=== PATIENT | male | born 1960 | race Caucasian/White ===

== ENCOUNTER 2019-01-06 10:25 | Outpatient (RCR) | payer OTHER, SELFPAY ==
[2018-12-10 17:18] VITALS: BMI 38.1
--- NOTE | 2019-04-05 11:38 | HP.PTEVAL ---
Patient's Visit Information LINSEY BARRIOS is a 59 year old M referred to Physical Therapy by SHY Rosario with a diagnosis of L ITB Syndrome. Date of Evaluation: 01/06/19 Physical Therapist: Deepa Esparza DPT - Visit Plan Frequency: 1x/Week Duration: 1 Week Plan: 01/06/19 Pt. prescribed HEP & instructed to perform on own & return if any questions/concerned. HEP: SL Clams (BTB), S[place] Bridge, SL Hip abd., gastrioc stretch, seated hamstring stretch - Subjective Findings: Reports feeling a muscle tear in L lower back 2nd week of november. Difficulty getting out of the car, went to [facility] and walked frequently. No issues at this time, bending down to put on shoes was uncomfortable. Got worse on return home, went to [facility] d/t to increase in pain 10/27. Given prescription for steroids & muscle relaxers - eased LBP. Burning pain (11/27) began 12/14/18 in L knee to L hip. Unable to walk to 25-30 feet. [facility] stated ITB syndrome. HEating pad at home has helped ease some of the pain. Pain is at ease when leaning on something for support. When stabnding erect pain at L leg. Pain has reduced in severity. Has been feeling numbness in L knee cap. Gideon hx of falling. Worst: 3-4/10 Aggravating: Walking, transferring out of car, mowing the lawn. Pain free at times Relieving factors: heating pad, pain meds, pain subsides after sitting almost immediately. Gideon disruption of sleep. Gideon any further N/T or current LBP. 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 PMH/Meds: See Chart - Objective Posture: FH, RS - corrected w/ v/c but not maintained. Gait: no deviations noted, pain with walking long distances. HR/TR: WFL w/ UE support. SLS: 5 seconds then LOB, righted by other LE. ROM: ankle/knee/hip WFL Lumbar: Flexion hands to mistry, Extension when tested extension came from thoracic, Side-bending & rotation R/L diminshed by 50%. Strength: ankle 5/5 knee 5/5 Hip 4/5 some mild pain Core: fair minus. Flexibility: Gastroc: severe Soleus: mild Hamstring: severe. Sensation: WNL to gross B touch. Special Tests: Jung (-) - Goals Goal 1:: Pt. will be I w/ HEP & progression - Rehabilitation Potential Physical Therapy Diagnosis: Presents w/ hypomobility, decreased flexibility, and pain which leads to difficulty w/ ADL's. Rehabilitation Potential: Good - Anticipated Interventions Patient/Client Instruction: Educate patient on: Condition, Benefits of Fitness Program For the Purpose of:: To decrease pain Therapeutic Exercise to Include: Strength training, Flexibilty training Thank you for the opportunity to evaluate your patient. For Medicare and Medicare HMO plans, please review the plan of care and approve it. It will need to be FAXED BACK to us at [phone] for Medicare purposes. For Medicare only, by signing this I certify the plan of care. Please let me know if there are questions or concerns regarding this plan of care. Physician Signature: Date:
--- NOTE | 2019-04-14 10:44 | HP.PT.NRP ---
HP - Discharge Summary (1) - Patient Information LINSEY BARRIOS was seen in my office for initial evaluation on 01/06/19. The following Plan of Care was established for this patient: Initial Frequency: 1x/Week Initial Duration: 1 Week - Anticipated Interventions Patient/Client Instruction: Educate patient on: Condition, Benefits of Fitness Program For the Purpose of:: To decrease pain Therapeutic Exercise to Include: Strength training, Flexibilty training This patient was last seen in our office . Pertinent comments regarding their Physical therapy will appear below: At this point I will be discontinuing this patient from physical therapy. I would be happy to see this patient again in the future if found appropriate by the physician. Thank you! LUPILLO DangeloT
== END 2019-01-06 19:00 | disposition home or self-care (01) ==
LOC: PT 10:25
PROVIDERS: Referring Provider Physician Assistant; Visit Provider Physician Assistant
DX: M76.32 Iliotibial band syndrome, left leg (principal)
CPT/HCPCS: 97110; 97161

== ENCOUNTER 2020-07-20 06:31 | Day surgery (SDC) | payer OTHER, SELFPAY ==
[2020-04-23 10:19] VITALS: BMI 37.8
--- NOTE | 2020-07-17 11:42 | NURSING ---
PATIENT HAD PFIZER VACCINE X2 DOSE 06/20/20
[2020-07-20 06:49] VITALS: BP 136/84; PULSE 74; RESP 16; TEMP 35.8; O2SAT 98; BMI 36.2
[2020-07-20] MEDS: Lactated Ringers 1,000 ML 100 ML IV (07:04)
--- NOTE | 2020-07-20 07:38 | H&P.OPEN ---
History of Present Illness Date of Admission: 07/20/20 The patient is a 60 year old M here for screening colonoscopy. He has never had a screening colonoscopy. He reports no blood in his stool or abdominal pain. He denies any family history of colon cancer. Past Medical/Surgical History - Planned Operation Planned Operative Procedure/s: CSCOPE OPEN ACCESS Date of Operative Procedure: 07/20/20 Permit Signed: No S.O.S: No Is This Patient Having a Total Joint: No - Previous Hospitalizations/Surgeries HX Hospitalizations: No HX of Surgeries: HERNIA REPAIR. APPENDECTOMY Any Problems With Anesthesia: Yes - N,V You/Your Family Experience Fever (Hyperthermia) With Anes: No Cholinesterase deficiency: No - Cardiovascular Hx Chest Pain within Last 2 months: No Hx of Irregular Heartbeat and/or Afib: No Hx Heart Attack: No Hx Congestive Heart Failure: No Hx Rheumatic Fever: No Hx Hypertension: No Hx Internal Defibrillator: No Hx Pacemaker: No Hx Cardiac Catheterization: No Hx Cardiac Surgery/Stents/Etc.: No Hx Stress Test: No HX Edema: No Hx Pain in Legs when Walking/Leg Cramps: No - Respiratory Chronic Cough: No HX of Shortness of Breath: No Hoarseness: No Hx Chronic Obstructive Pulmonary Disease (COPD): No Hx Asthma: No Hx Emphysema: No Hx Sleep Apnea: No Hx Oxygen Use at Home: No Hx Respiratory Tract Infection/Cold (presently): No Do You Snore Loudly (louder than talking or can be heard): Yes Do You Often Feel Tired/ Fatigued/ Sleepy Dring Daytime?: No Has Anyone Observed You Stop Breathing During Sleep?: No Result (for STOP score): Negative Hx Smoking: Yes - CHEWING TOBACCO Smoking Status: Current every day smoker - Gastrointestinal Hx Gastroesophageal Reflux: No - OCC HEARTBURN/OCC OTC Hx Gastrointestinal Disorders: No Hx Gastrointestinal Bleed: No Hx Ulcer: No Hx Hiatal Hernia: No Difficulty Chewing/Swallowing: No Recent Onset of Swallowing Problems: No Special diet followed at home: No Hx Unplanned Weight Loss of 20#: No HX Unplanned Weight Gain of 20#: No - Neurological Hx Seizures: No HX Syncope/Blackout Spells/Unconsciousness: No Hx CVA/Stroke: No Hx Transient Ischemic Attacks (TIA): No Hx Multiple Sclerosis: No Hx Parkinson's Disease: No Hx Head/Neck Injury: No Hx Headaches: Yes - OCC Hx Back Injury/Pain: Yes - PRN BACK PAIN/IT BAND ISSUES IN THE PAST Recent Onset of Speech Difficulty: No Restless Legs: No Does patient have nerve stimulator: No Patient instructed to have device shut off: No Rep notified?: No - Blood Disorder Hx Leukemia: No Bleeding Tendencies: No Hx Deep Vein Thrombosis: No Hx High Cholesterol: No Blood Transmitted Disease: No Hx Hepatitis: No Hx Cirrhosis: No Hx Anemia: No Hx Blood Disorders: No - Genitourinary Hx Renal Disease: No - Musculoskeletal Hx Arthritis: No Hx Rheumatoid Arthritis: No Hx Gout: No Recent Onset of an Orthopedic Problem: No - Endocrine Hx Diabetes: No Thyroid Disease: No Hx Steroid Therapy: No - Psycho/Social Hx Substance Use: No Hx Alcohol Use: Yes - OCC Hx Anxiety: Yes - SITUATIONAL Hx Depression: No Mental Illness: No Hx Dementia: No - Miscellaneous Hx Cancer: No Recent Exposure to Contagious Disease: No Active MRSA: No Hx of C-Diff: No Any Loose Teeth: No Allergies hydrocodone [From Vicodin] Adverse Reaction (Mild, Verified 07/17/20 11:33) Dry heaves - Discharge Is Pt Admitted From a Residential, or a Assisted: No After D/C, Where Do you Plan to Go: Return Home - Physical Exam Vitals/I&O's: Vital Signs Temp Pulse Resp BP Pulse Ox 96.4 F L 74 16 136/84 H 98 07/20/20 06:49 07/20/20 06:49 07/20/20 06:49 07/20/20 06:49 07/20/20 06:49 Oxygen Delivery Method Room Air Weight: 252 lb 6.868 oz Body Mass Index (BMI) 36.2 General: Alert, Oriented x3 Neck: No JVD Lungs: Normal air movement Cardiovascular: Regular rate, Regular Rhythm Abdomen: Soft, Non Tender, Non-Distended Current Medications Lactated Ringer's () 1,000 mls @ 100 mls/hr IV .Q10H DALE Last Admin: 07/20/20 07:04 Dose: 100 mls/hr Documented by: Assessment/Plan All Active Problems (Last Reviewed 04/23/20 @ 10:24 by Vinita Franks) IT band syndrome (Acute) 60-year-old male here for screening colonoscopy I explained endoscopy in detail to the patient. I explained the risks including but not limited to stroke or heart attack with anesthesia, perforation of the GI tract, bleeding, infection. I explained that any of these could necessitate further emergency surgery. The patient understands and all questions were answered sufficiently. The patient wishes to proceed with procedure. Elvin Prajapati MD Pager: [facility] [address] [place] [address] [address] [place] [address] Office: Surgery Risks - Colonoscopy Risks Include but are not Limited To: Risks include but are not limited to: Bleeding, perforation requiring further surgery, inability to complete colonoscopy requiring barium enema.
[2020-07-20 07:56] VITALS: BP 113/81; BP 136/84; PULSE 78; RESP 16; TEMP 35.9; O2SAT 95
--- NOTE | 2020-07-20 07:56 | OP.COLON_ITS ---
Patient Name: Harry Eduardo Procedure Date: 07/20/2020 7:00 AM Date of : 1960 Age: 60 Procedure: Colonoscopy Indications: Screening for colorectal malignant neoplasm Providers: Elvin Prajapati MD Referring MD: Christie Hooper Medicines: Monitored Anesthesia Care Patient Profile: This is a 60 year old male. Refer to note in patient chart for documentation of history and physical. Last Colonoscopy: none. The patient's first colonoscopy is today. Complications: No immediate complications. Procedure: Pre-Anesthesia Assessment: - Prior to the procedure, a History and Physical was performed, and patient medications and allergies were reviewed. The patient's tolerance of previous anesthesia was also reviewed. The risks and benefits of the procedure and the sedation options and risks were discussed with the patient. All questions were answered, and informed consent was obtained. Prior Anticoagulants: The patient has taken no previous anticoagulant or antiplatelet agents. After reviewing the risks and benefits, the patient was deemed in satisfactory condition to undergo the procedure. After I obtained informed consent, the scope was passed under direct vision. Throughout the procedure, the patient's blood pressure, pulse, and oxygen saturations were monitored continuously. The Colonoscope was introduced through the anus and advanced to the cecum, identified by appendiceal orifice and ileocecal valve. The colonoscopy was performed without difficulty. The patient tolerated the procedure well. The quality of the bowel preparation was good. Scope In: 7:42:28 AM Scope Withdrawal Time 0 hours 6 minutes 0 seconds Scope Out: 7:52:27 AM Total Procedure Duration Time 0 hours 9 minutes 59 seconds Findings: The entire examined colon appeared normal on direct and retroflexion views. Impression: - The entire examined colon is normal on direct and retroflexion views. - No specimens collected. Recommendation: - Discharge patient to home. - Resume previous diet. - Continue present medications. - Repeat colonoscopy in 10 years for screening purposes. Procedure Code(s): --- Professional --- 17538, Colonoscopy, flexible; diagnostic, including collection of specimen(s) by brushing or washing, when performed (separate procedure) Diagnosis Code(s): --- Professional --- Z12.11, Encounter for screening for malignant neoplasm of colon CPT copyright 2017 [employer]. All rights reserved. The codes documented in this report are preliminary and upon oral pathologist review may be revised to meet current compliance requirements. Elvin Prajapati MD 07/20/2020 7:55:33 AM This report has been signed electronically. Number of Addenda: 0 Note Initiated On: 07/20/2020 7:00 AM
--- NOTE | 2020-07-20 07:56 | OP.CCLET_ITS ---
07/20/2020 Christie Hooper [facility] [address] [place] [address] Re : Colonoscopy procedure for Harry Peraltalisandro Dear Dr. Hooper This procedure was performed on Monday, July 20, 2020. My impressions and recommendations are as follows: Impressions : - The entire examined colon is normal on direct and retroflexion views. - No specimens collected. Recommendations : - Discharge patient to home. - Resume previous diet. - Continue present medications. - Repeat colonoscopy in 10 years for screening purposes. My findings are described in the full procedure note, which is enclosed. If I can be of further assistance, please feel free to contact me at Doctor phone number(s): , Work: . Sincerely, Elvin Prajapati MD 07/20/2020 7:55:33 AM This report has been signed electronically.
[2020-07-20 08:00] VITALS: BP 105/93; BP 136/84; PULSE 72; RESP 18; O2SAT 93
[2020-07-20 08:05] VITALS: BP 129/83; BP 136/84; PULSE 72; RESP 18; O2SAT 92
[2020-07-20 08:11] VITALS: BP 129/83; BP 136/84; PULSE 67; RESP 18; TEMP 36.3; O2SAT 97
[2020-07-20 08:34] VITALS: BP 136/84
== END 2020-07-20 08:37 | disposition home or self-care (01) ==
LOC: EN 06:32 → AC 06:34
PROVIDERS: PCP Internal Medicine; Referring Provider Internal Medicine; Visit Provider Surgery
PROC: 0DJD8ZZ Inspection of Lower Intestinal Tract, Via Natural or Artificial Opening Endoscopic (ICD-10-PCS; CPT 45378; principal; 2020-07-20 07:25)
DX: Z12.11 Encounter for screening for malignant neoplasm of colon (principal); F17.200 Nicotine dependence, unspecified, uncomplicated
CPT/HCPCS: 45378; J7120; J2405

== ENCOUNTER → 2021-03-26 15:41 | Outpatient (CLI) | payer OTHER, SELFPAY ==
[2021-03-26 17:06] LABS: Absolute Lymphocyte Count 1.58 X10^3/uL (0.83-4.51); Absolute Neutrophil Count 3.6 X10^3/uL (2.0-7.7); Basophil# 0.03 X10^3/uL; Basophil% 0.5 % (0-1); Eosinophil# 0.11 X10^3/uL; Eosinophils% 1.9 % (0-5); Hematocrit 44.7 % (40-54); Hemoglobin 15.6 g/dL (13.0-16.5); Lymphocyte # 1.58 X10^3/ul (0.83-4.51); Lymphocyte % 26.8 % (19-41); Mean Corp Hgb Conc 34.9 g/dL (32-36); Mean Corpuscular Volume 91.8 fL (80-94); Mean Platelet Vol. 10.6 fl (6.2-12.0); Monocyte# 0.56 X10^3/uL; Monocyte% 9.5 % (0-10); NRBC Flagged by Analyzer 0 % (0-5); Neutrophil # 3.61 X10^3/uL (2.7-7.7); Neutrophil % 61.1 % (47-70); Platelet Count 158 K/mm3 (150-450); RBC Distribution Width CV 12.4 % (11.6-14.6); RBC Distribution Width SD 42.1 fl (35.1-43.9); Red Blood Count 4.87 M/mm3 (4.6-6.2); White Blood Count 5.9 K/mm3 (4.4-11.0)
[2021-03-26 17:54] LABS: Hemoglobin A1c 5.4 % (3.8-5.6)
[2021-03-26 18:12] LABS: AST(SGOT) 23 U/L (15-37); Alanine Aminotransfer ALT/SGPT 25 U/L (16-61); Albumin, Serum 4.2 g/dL (3.2-5.0); Alkaline Phosphatase 98 U/L (45-117); Anion Gap 9 (5-15); BUN 13 mg/dL (7-18); BUN/Creat Ratio 11.8 RATIO (10-20); Calcium,Total 9.1 mg/dL (8.5-10.1); Chloride 100 mmol/L (98-107); Cholesterol 150 mg/dL (200); EST Glomerular Filtration Rate 72 mL/min (>60); Est Glom Filt Rate - Afr Amer 88 mL/min (>60); Globulin 4.3 g/dL (2.2-4.2); Glucose 86 mg/dL (74-106); High Density Lipoprotein 40 mg/dL; PSA,Total - Annual Screen 0.36 ng/mL (0.00-4.00); Potassium 3.6 mmol/L (3.5-5.1); Protein, Total 8.5 g/dL (6.4-8.2); Sodium Level 136 mmol/L (136-145); Triglycerides 68 mg/dL; Very Low Density Lipoprotein 14 mg/dL (5-40)
[2021-03-27 10:56] LABS: Free T3 2.3 pg/mL (2.18-3.98); T4 Free Direct 0.94 ng/dL (0.76-1.46)
== END ==
PROVIDERS: PCP Internal Medicine; Referring Provider Internal Medicine; Visit Provider Internal Medicine
DX: E66.3 Overweight (principal); R94.6 Abnormal results of thyroid function studies; Z13.1 Encounter for screening for diabetes mellitus; Z13.220 Encounter for screening for lipoid disorders
CPT/HCPCS: 36415; 80053; 80061; 83036; 84153; 84439; 84443; 84481; 85025; G0103

== ENCOUNTER → 2021-04-03 15:01 | Outpatient (CLI) | payer OTHER, SELFPAY ==
[2021-04-05 14:09] LABS: Thyroid Peroxidase AB 95 IU/mL (0-34)
[2021-04-05 14:13] LABS: Thyroglobulin Antibody 2.9 IU/mL (0.0-0.9)
== END ==
PROVIDERS: PCP Internal Medicine; Visit Provider Internal Medicine
DX: R79.89 Other specified abnormal findings of blood chemistry (principal)
CPT/HCPCS: 36415; 86376; 86800

== ENCOUNTER 2021-07-22 16:11 | Outpatient (CLI) | payer OTHER, SELFPAY ==
[2021-07-22 17:39] LABS: Free T3 2.6 pg/mL (2.18-3.98); T4 Free Direct 0.73 ng/dL (0.76-1.46)
== END 2021-07-22 23:59 | disposition home or self-care (01) ==
LOC: BIMLAB 16:12
PROVIDERS: PCP Internal Medicine; Referring Provider Internal Medicine; Visit Provider Internal Medicine
DX: R79.89 Other specified abnormal findings of blood chemistry (principal)
CPT/HCPCS: 36415; 84439; 84443; 84481

== ENCOUNTER → 2021-10-18 | Outpatient (CLI) | payer OTHER, SELFPAY ==
[2021-10-18 15:46] LABS: Hematocrit 42.7 % (40-54); Hemoglobin 14.8 g/dL (13.0-16.5); Mean Corp Hgb Conc 34.7 g/dL (32-36); Mean Corpuscular Hgb 32.1 pg (27.0-32.0); Mean Corpuscular Volume 92.6 fL (80-94); Mean Platelet Vol. 11.8 fl (6.2-12.0); Platelet Count 143 K/mm3 (150-450); RBC Distribution Width CV 12.7 % (11.6-14.6); RBC Distribution Width SD 43.4 fl (35.1-43.9); Red Blood Count 4.61 M/mm3 (4.6-6.2); White Blood Count 5.9 K/mm3 (4.4-11.0)
[2021-10-18 15:55] LABS: ALB/GLOB Ratio 1.1 RATIO (0.9-2.4); AST(SGOT) 24 U/L (15-37); Alanine Aminotransfer ALT/SGPT 19 U/L (16-61); Albumin, Serum 4.2 g/dL (3.2-5.0); Alkaline Phosphatase 98 U/L (45-117); Anion Gap 8 (5-15); BUN 14 mg/dL (7-18); BUN/Creat Ratio 12.6 RATIO (10-20); Calcium,Total 9.6 mg/dL (8.5-10.1); Chloride 106 mmol/L (98-107); Creatinine, Serum 1.11 mg/dL (0.70-1.30); EST Glomerular Filtration Rate 71 mL/min (>60); Est Glom Filt Rate - Afr Amer 86 mL/min (>60); Ferritin 144 ng/mL (26-388); Globulin 3.9 g/dL (2.2-4.2); Glucose 95 mg/dL (74-106); Iron 109 ug/dL (65-175); Iron Binding Capacity,Total 313 ug/dL (250-450); Potassium 3.8 mmol/L (3.5-5.1); Protein, Total 8.1 g/dL (6.4-8.2); Sodium Level 137 mmol/L (136-145)
[2021-10-18 16:00] LABS: Free T3 2.7 pg/mL (2.18-3.98); T4 Free Direct 1.01 ng/dL (0.76-1.46); Thyroid Stim Hormone (TSH) 3.95 uIU/mL (0.358-3.74)
[2021-10-21 08:09] LABS: PTHIN 35.4 pg/mL (18.4-80.1)
[2021-10-24 00:07] LABS: Ceruloplasmin 21.8 mg/dL (16.0-31.0)
[2021-10-24 08:43] LABS: Copper, Serum or Plasma 92 ug/dL (69-132)
== END | disposition home or self-care (01) ==
LOC: MTLAB 13:09
PROVIDERS: PCP Internal Medicine; Referring Provider Psychiatry & Neurology Neurology; Visit Provider Psychiatry & Neurology Neurology
DX: G24.3 Spasmodic torticollis (principal); E03.9 Hypothyroidism, unspecified; Z86.2 Personal history of diseases of the blood and blood-forming organs and certain disorders involving the immune mechanism
CPT/HCPCS: 36415; 80053; 82390; 82525; 82728; 83540; 83550; 83970; 84439; 84443; 84481; 85027

== ENCOUNTER → 2022-02-17 | Outpatient (CLI) | payer OTHER, SELFPAY ==
[2022-02-17 15:39] LABS: Free T3 2.5 pg/mL (2.18-3.98); Thyroid Stim Hormone (TSH) 4.55 uIU/mL (0.358-3.74)
[2022-02-22 17:07] LABS: Testosterone, Free 9.31 ng/dL (5.00-21.00)
[2022-02-23 11:33] LABS: Testosterone, % Free 2.05 % (1.50-4.20); Testosterone, Total 454 ng/dL (264-916)
== END | disposition home or self-care (01) ==
PROVIDERS: PCP Internal Medicine; Referring Provider Psychiatry & Neurology Neurology; Visit Provider Psychiatry & Neurology Neurology
DX: E03.9 Hypothyroidism, unspecified (principal)
CPT/HCPCS: 36415; 84402; 84403; 84439; 84443; 84481

== ENCOUNTER 2022-06-27 10:19 | Outpatient (RCR) | payer OTHER, SELFPAY ==
--- NOTE | 2022-07-09 10:42 | HP.PTEVAL_ITS ---
Patient's Visit Information LINSEY BARRIOS is a 62 year old M referred to Physical Therapy by Earl Ball MD with a diagnosis of Cervical dystonia. Date of Evaluation: 06/27/22 Physical Therapist: Jose Landis DPT - Visit Plan Duration: 6 Weeks Plan: Start with stretching and inhibition exercises and strengthening of antagonist. - Subjective Pt. is here today for his initial evaluation with diagnosis of cervical dystonia. Pt. reports having issues for ~2 years. He reports that his head will randomly turn to the R side. Pt. reports no mech of injury, but has been noticing it more and more. Pt. denies much neck pain, ~0-1/10 at most times. He reports that it is more annoying than anything else. Pt. reports that his neck with turn to the R side randomly, with no trigger. He reports using pressure to assist with correcting his R sided motion. Pt. sleep okay, but does notice it while at work. 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 Pt. reports not trying any other form of treatment of his neck. Pt. is hopeful to reduce symptoms in order to get back to all work and recreational activities without limitations. - Pain R side of neck Pain Intensity (Out of 10): 1 Pain Intensity Range: 0, 2 - Objective POSTURE: Pt. has a slight R lateral lean and slight R rotation slight flexion. He is able to self correct, but does revert back when not focusing on. Pt. has FH posture with increased thoracic kyphosis. Pt. is able to improve, but not fully correct. PALPATION: Pt. has tightness at R UT and R SCM. NO pain with PAs throughout cervical spine. NEURO: Pt. has normal sensation and normal DTR of BUEs. ROM: CERVICAL SPINE: flexion nil loss NE, ext mod loss increase NW, SB mod loss bilat NE, rotation min loss L NE (tightness). Pt. has slight loss of B shoulder flexion, most likely due to increase kyphosis. MMT: PT. has full strength of BUEs. Pt. has 5/5 strength iso throughout cervical spine - Special Tests C/S Radiculapathy - Left Upper limb tension test: Negative C/S Radiculapathy - Right Upper limb tension test: Negative C/S Radiculapathy - Left Spurlings: Negative C/S Radiculapathy - Right Spurlings: Negative C/S Radiculapathy - Left Cervical distraction: Negative C/S Radiculapathy - Right Cervical distraction: Negative C/S Radiculapathy - Left Relief test: Negative C/S Radiculapathy - Right Relief test: Negative C/S Radiculapathy - Valsalva: Negative - Balance/Special Test Scores Oswestry Neck Score: 10 - Goals Goal 1:: LTG: Pt. to be I with HEP. Goal Time Frame: 4-6 Weeks Goal 2:: LTG: Pt. to maintain good posture throughout therapy session without increase in symptoms. Goal Time Frame: 4-6 Weeks Goal 3:: LTG: pt. to have no issues with cervical rotation during all ADLs and work activities. Goal Time Frame: 4-6 Weeks Goal 4:: STG: pt. to report spasming in his neck to less than 5 times per day. Goal Time Frame: 2-4 Weeks - Rehabilitation Potential Physical Therapy Diagnosis: Pt. has signs and symptoms consistent with cervical dystonia with pull to the right side. Pt. is able to correct, but difficult to maintain. Pt. would benefit from PT to reduce tone of neck. Pt. would benefit from inhibition, stretching and motor control techniques. Rehabilitation Potential: Good - Anticipated Interventions Patient/Client Instruction: Educate patient on: Condition, Plan of Care, Risk Factors, Benefits of Fitness Program For the Purpose of:: To foster healthy habits, To improve decision making, To facilitate caregiver knowledge, To improve self management, To prevent re- injury, To improve ability to perform tasks related to life management Therapeutic Exercise to Include: Strength training, Power training, Postural training, Flexibilty training, Passive ROM, Active ROM For the Purpose of:: To decrease pain, To increase ROM, To improve nutrient delivery to tissue, To increase oxygenation perfusion, To improve muscle performance and motor function, To improve ability to perform ADL's, To increase flexibility/ROM Manual Therapy Techniques to Include: Mobilization For the Purpose of:: To decrease pain, To decrease swelling/inflammation, To increase ROM, To improve nutrient delivery to tissue Thank you for the opportunity to evaluate your patient. For Medicare and Medicare HMO plans, please review the plan of care and approve it. It will need to be FAXED BACK to us at [phone] for Medicare purposes. For Medicare only, by signing this I certify the plan of care. Please let me know if there are questions or concerns regarding this plan of care. Physician Signature: Date:
== END 2022-06-27 19:00 | disposition home or self-care (01) ==
LOC: PT 10:19
PROVIDERS: PCP Internal Medicine; Referring Provider Psychiatry & Neurology Neurology; Visit Provider Psychiatry & Neurology Neurology
DX: G24.3 Spasmodic torticollis (principal)
CPT/HCPCS: 97161

== ENCOUNTER → 2022-07-08 | Outpatient (CLI) | payer OTHER, SELFPAY ==
[2022-07-08 15:28] LABS: Amphetamine Urine VISTA NEGATIVE (<1000 ng/mL); Barbiturate Urine VISTA NEGATIVE (< 200 ng/mL); Benzodiazepine Urine VISTA NEGATIVE (< 200 ng/mL); Cocaine Urine VISTA NEGATIVE (< 300 ng/mL); Ecstacy Urine VISTA NEGATIVE (< 500 ng/mL); Methadone Urine VISTA NEGATIVE (< 300 ng/mL); PCP Urine VISTA NEGATIVE (< 25 ng/mL); THC Urine VISTA NEGATIVE (< 50 ng/mL); Vista UDS pH Range 4
[2022-07-08 15:39] LABS: T4 Free Direct 0.99 ng/dL (0.76-1.46); Thyroid Stim Hormone (TSH) 2.97 uIU/mL (0.358-3.74)
== END | disposition home or self-care (01) ==
LOC: MTLAB 12:45
PROVIDERS: PCP Internal Medicine; Referring Provider Psychiatry & Neurology Neurology; Visit Provider Psychiatry & Neurology Neurology
DX: E03.9 Hypothyroidism, unspecified (principal); G24.3 Spasmodic torticollis
CPT/HCPCS: 36415; 80307; 84439; 84443

== ENCOUNTER → 2023-04-09 | Outpatient (CLI) | payer OTHER, SELFPAY ==
--- NOTE | 2023-04-09 11:12 | NEURO ---
NCS and/or EMG Patient Report Ordering Doctor: Earl Ball DATE OF SERVICE: 04/09/23 Clinical Summary: This is a 63 year old male presenting with complaints of burning pain in the left upper extremity and some numbness in the left hand. This EMG/NCS was performed to evaluate for left cervical radiculopathy and left carpal tunnel syndrome. Nerve Conduction Studies Summary: The left median-D2 SNAP distal latency was prolonged with reduced amplitude. The left median-APB CMAP distal latency was prolonged. There was left median motor conduction velocity across the forearm segment. The left ulnar-D5 SNAP distal latency was prolonged. There was left ulnar motor conduction velocity slowing across the elbow. Needle Examination Summary: Needle examination of select muscles of the left upper extremity was normal. Impression: There is electrodiagnostic evidence of the following - 1) Moderate to severe, left median mononeuropathy at the wrist (carpal tunnel syndrome), with motor fiber demyelination and secondary sensory fiber axonal loss 2) Moderate to severe, left ulnar mononeuropathy at the elbow, with secondary sensory fiber axonal loss There is no electrodiagnostic evidence of a left cervical radiculopathy. Multi Select Codes Neurology Neurology Interp Codes: 14586-90 Musc test done w/n test comp (interp) (1) and 85204-94 Nrv cndj tst 5-6 studies (interp)
== END | disposition home or self-care (01) ==
LOC: PSN 10:20
PROVIDERS: PCP Internal Medicine; Referring Provider Psychiatry & Neurology Neurology; Visit Provider Psychiatry & Neurology Neurology
DX: G56.02 Carpal tunnel syndrome, left upper limb (principal); G24.3 Spasmodic torticollis
CPT/HCPCS: 95886; 95909

== ENCOUNTER → 2023-07-17 | Outpatient (CLI) | payer OTHER, SELFPAY ==
--- NOTE | 2023-07-17 15:24 | RAD_ITS ---
STUDY: XR Shoulder Min 2 Views REASON FOR EXAM: Male, 63 years old. left shoulder pain TECHNIQUE: XR Shoulder 5Views LEFT COMPARISON: None. FINDINGS: There is mild degenerative arthrosis of the glenohumeral articulation. Normal acromioclavicular joint. Normal acromion. Normal humeral head and visualized proximal humerus. The soft tissue structures are unremarkable. Normal visualized pulmonary apex. RAD/Shoulder min 2 Views IMPRESSION: There is mild degenerative arthrosis of the glenohumeral articulation. Electronically Signed: Benoit Conner MD at 15:51 EDT ,
== END | disposition home or self-care (01) ==
LOC: MTRAD 15:24
PROVIDERS: PCP Internal Medicine; Referring Provider Psychiatry & Neurology Neurology; Visit Provider Psychiatry & Neurology Neurology
DX: M25.512 Pain in left shoulder (principal)
CPT/HCPCS: 73030

== ENCOUNTER → 2025-04-18 | Outpatient (CLI) | payer OTHER, SELFPAY ==
--- NOTE | 2025-04-18 10:47 | RAD_ITS ---
PROCEDURE: SHOULDER MIN 2 VIEWS 04/18/2025 REASON FOR EXAM: Pain, decreased range of motion TECHNIQUE: Procedure Code: RAD Modality: DX Procedure: SHOULDER MIN 2 VIEWS COMPARISON: None FINDINGS: The bones are diffusely demineralized. No demonstrated fracture or suspicious osseous lesion Moderate age consistent glenohumeral and AC joint arthrosis without traumatic injury. No upper rib fracture or pneumothorax. RAD/Shoulder min 2 Views IMPRESSION: Diffuse osteopenia with age consistent degenerative changes, no acute findings Reading Location: [id number]
--- OUTSIDE RECORDS SUMMARY | 2025-04-18 11:56 | XMS RPT_ITS | CCD ---
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 J0585 Total amount injected: 270 units Dilution: NS 1:1 Administered with EMG guidance: Yes Degree of effectiveness of last injection: 0 ( notes seemed better but patient denies any functional benefit) Latency period of last injection: n/a Wearing off period of last injection: n/a Side effects related to last injection: none Current pain symptoms: Yes (location) - up to 3/10 pain Current functional limitations: 3-4(severe) Allergies: ALLERGIES Allergen Reactions Hydrocodone Other: See Comments Flushed feeling, dry heaves Current Medications: Current Outpatient Medications Medication Sig aspirin 325 mg tablet Take 325 mg by mouth. As needed only ibuprofen (MOTRIN) 200 mg tablet Take 200 mg by mouth every 6 hours as needed. triHEXYphenidyl (ARTANE) 5 mg tablet Take 1 tablet by mouth three times daily. levothyroxine (SYNTHROID) 50 mcg tablet Take 1 tablet by mouth every afternoon. onabotulinum toxin type A (BOTOX) 100 unit solr Inject 200 units IM in office by neurologist for cervical dystonia. Flurbiprofen 100 mg tablet Take 100 mg by mouth three times daily as needed. clonazePAM (KLONOPIN) 0.5 mg tablet Take 1 tablet by mouth every 12 hours at 6 am and 6 pm. No current facility-administered medications for this visit. OBJECTIVE: BP 122/73 (BP Site: Right Arm, BP Position: Sitting, BP Cuff Size: Regular Adult) Pulse (!) 55 Ht 177.8 cm (5' 10) Wt 81.5 kg (179 lb 12.6 oz) BMI 25.80 kg/m? Special features on today's visit: Not as prominent in prior visits. Occasional right head turn. ASSESSMENT AND PLAN: Mr. Barrios is a left-handed 63 year old male with Cervical dystonia (G24.3). After obtaining informed consent, neurotoxin injections were carried out as outlined below. TIME OUT/ PROCEDURE NOTE: Informed consent Linsey Barrios Medical Record: [id number] Procedure: neurotoxin intramuscular injection The risks, benefits and anticipated outcomes of the procedure, the risks and benefits of the alternatives to the procedure and the roles and tasks of the personnel to be involved were discussed with the patient and the patient consents to the procedure and agrees to proceed. I verify that I personally obtained Linsey Barrios's consent. Jessica Rivas MD UNIVERSAL PROTOCOL / SAFETY CHECKLIST Procedure to be Performed: Botox injection for cervical dystonia Sign In: A Moment of CARE was completed. Personnel directly involved with the procedure wore the appropriate PPE (Personal Protective Equipment). Patient/Surrogate Stated/Verified: PATIENT VERIFIED(optional for EMERGENT procedures): Patient name, Date of , Relevant allergies, and The intended procedure Time Out Communication: Intended patient and procedure match the source documents. Consent documented and matches the intended procedure. Sign Out: SIGN OUT (optional for EMERGENT procedures): No specimen collected. Jessica Rivas MD Current Injection Note Type of neurotoxin: Botox: J0585 Total amount drawn: 300 units Total amount injected: 300 units Total amount wasted: 0 units Dilution: NS 1:1 Administered with EMG guidance: Yes Injection Site: Cervical dystonia: CPT 42836 Left Right Sternocleidomastoid 55 units Splenius capitus 80 units (3 sites) Scalene 20 units 25 units Levator Scapulae 50 units (2 sites one lower one upper) Trapezius 30 units Semispinalis Longissimus 40 units Lot#: [id number] Exp Date 07/2025 Future plan of care: Follow up: 3 months Neurotoxin change: No Dose change: Depends on response Reason(s) for changing neurotoxin type of dose: n/a Sent staff message to nursing related to any changes: No MD Evelyn Millan Ted, MD 07/01/2023 4:34 PM Signed Let me know in a few weeks how things are going. Referring Provider: JESSICA RIVAS [[id number]] Allergies As of Wong (more content not included)... Normal [facility] CNOVon 04-01-2023 CNOV Office Visit ([facility] ) -------- LINSEY BARRIOS ([id number]) 1960 M [facility] Date Time Provider Department 04/01/23 1:30 PM JESSICA RIVAS [facility] During your visit today, we recorded the following information about you: Pulse Blood pressure Weight Height 86/minute 115/75 81.6 kg 1.778 m Jessica Rivas MD 04/01/2023 2:49 PM Signed [facility] Movement Disorders Neurotoxin Visit Date: 04/01/23 Name: Linsey Barrios SUBJECTIVE: Historical/ Initial Dose Diagnosis: Cervical dystonia (G24.3) Date of diagnosis: 03/2021 Other treatments hthat ave been tried and failed: Physical therapy, Medications baclofen, trihexyphenidyl, gabapentin, clonazepam Date of first neurotoxin treatment: 12/18/22 Type of neurotoxin given: Botox: J0585 Frequency of current neurotoxin treatment: 90days Estimated frequency and duration of treatment: continue with current injection interval; will reassess after 1 year Last Injection Notes Date of last Injection: 12/18/22 Type of neurotoxin: Botox: J0585 Total amount injected: 170 units Dilution: NS 1:1 Administered with EMG guidance: Yes Degree of effectiveness of last injection: 0 Latency period of last injection: n/a Wearing off period of last injection: n/a Side effects related to last injection: none Current pain symptoms: Yes (location) - up to 3/10 pain Current functional limitations: 3(severe) Allergies: ALLERGIES Allergen Reactions Hydrocodone Other: See Comments Flushed feeling, dry heaves Current Medications: Current Outpatient Medications Medication Sig triHEXYphenidyl (ARTANE) 5 mg tablet Take 1 tablet by mouth three times daily. Flurbiprofen 100 mg tablet Take 100 mg by mouth three times daily as needed. levothyroxine (SYNTHROID) 50 mcg tablet Take 1 tablet by mouth every afternoon. onabotulinum toxin type A (BOTOX) 100 unit solr Inject 200 units IM in office by neurologist for cervical dystonia. clonazePAM (KLONOPIN) 0.5 mg tablet Take 1 tablet by mouth every 12 hours at 6 am and 6 pm. No current facility-administered medications for this visit. OBJECTIVE: BP 115/75 (BP Site: Right Arm, BP Position: Sitting, BP Cuff Size: Regular Adult) Pulse 86 Ht 177.8 cm (5' 10) Wt 81.6 kg (180 lb) BMI 25.83 kg/m? Special features on today's visit: Mild right head turn ASSESSMENT AND PLAN: Mr. Barrios is a left-handed 63 year old male with Cervical dystonia (G24.3). After obtaining informed consent, neurotoxin injections were carried out as outlined below. TIME OUT/ PROCEDURE NOTE: Informed consent Linsey Barrios Medical Record: [id number] Procedure: neurotoxin intramuscular injection The risks, benefits and anticipated outcomes of the procedure, the risks and benefits of the alternatives to the procedure and the roles and tasks of the personnel to be involved were discussed with the patient and the patient consents to the procedure and agrees to proceed. I verify that I personally obtained Linsey Barrios's consent. Jessica Rivas MD December 18, 2022 11:49 AM UNIVERSAL PROTOCOL / SAFETY CHECKLIST Procedure to be Performed: Botox injection for cervical dystonia Sign In: A Moment of CARE was completed. Personnel directly involved with the procedure wore the appropriate PPE (Personal Protective Equipment). Patient/Surrogate Stated/Verified: PATIENT VERIFIED(optional for EMERGENT procedures): Patient name, Date of , Relevant allergies, and The intended procedure Time Out Communication: Intended patient and procedure match the source documents. Consent documented and matches the intended procedure. Sign Out: SIGN OUT (optional for EMERGENT procedures): No specimen collected. Jessica Rivas MD Current Injection Note Type of neurotoxin: Botox: J0585 Total amount drawn: 300 units Total amount injected: 270 units Total amount wasted: 30 units Dilution: NS 1:1 Administered with EMG guidance: Yes Injection Site: Cervical dystonia: CPT 56479 Left Right Sternocleidomastoid 60 units 40 units Splenius capitus 50 units +++ Scalene 20 units Levator Scapulae 50 units Trapezius 20 units 30 units Semispinalis (Other) Lot#: [id number] Exp Date 07/2025 Future plan of care: Follow up: 3 months Neurotoxin change: No Dose change: No - depends on response Reason(s) for changing neurotoxin type of dose: n/a Sent staff message to nursing related to any changes: No Jessica Rivas MD Referring Provider: JESSICA RIVAS [[id number]] Allergies As of Date: 04/01/2023 Noted Allergy Reaction HYDROCODONE 04/23/2020 14 - Other: See Comments Comments: Flushed feeling, dry heaves Date Reviewed: 04/01/2023 Reviewed by: Simran Corona - Fully Assessed Reason for Visit: Botox Injection [373] Primary Visit Diagnosis:Cervical dystonia [G24.3] Order(s):[] onabotulinum toxin ty (more content not included)... [facility] -------- LINSEY BARRIOS ([id number]) 1960 M [facility] Date Time Provider Department 01/19/23 JESSICA RIVAS [facility] During your visit today, we recorded the following information about you: Julieta Lewis 01/19/2023 1:49 PM Signed Patient calling in with concern that he has not felt any reduction from getting the botox on December 18. Please call patient and advise. Jessica Rivas MD 01/19/2023 2:59 PM Signed Will increase dose for next visit. I'll send this to Simran to submit for up to 300 units for next visit. Evelia Luciano RN 01/19/2023 3:28 PM Signed Called patient, no answer at [phone]. Unable to leave voicemail message, would not record. Evelia Luciano RN 01/21/2023 2:47 PM Signed Called patient who verbalized understanding with provider message about the dosing. He did not have the time to coordinate his appointment during this call but is asking if his appointment can possibly be moved up closer to the 3 months from his last visit. Jessica Rivas MD 01/22/2023 12:39 PM Signed Yea, last visit 12/18 so anytime beginning of March is fine Simran Corona 01/22/2023 2:56 PM Signed Was on hold for insurance x half hour and call disconnected. Will try again. Simran Corona 01/28/2023 2:22 PM Addendum Spoke with Onur [phone]. Prior Auth Determination: Approved Medication/ Treatment: Botox 300 units with EMG x3 visits Auth#/ Case#: [id number] MMO [id number] Date Period: 04/01/23 - 11/13/23 This is for start date same as appointment date. Spoke with patient and he is aware to keep his 04/01 appt. Allergies As of Date: 01/19/2023 Noted Allergy Reaction HYDROCODONE 04/23/2020 14 - Other: See Comments Comments: Flushed feeling, dry heaves Date Reviewed: 12/18/2022 Reviewed by: Jackie Fuchs LPN - Fully Assessed Reason for Visit: Patient Question [2844] Prescriptions as of 01/28/2023 - clonazePAM (KLONOPIN) 0.5 mg tablet Take 1 tablet by mouth every 12 hours 6am/6pm. - Flurbiprofen 100 mg tablet Take 100 mg by mouth three times daily as needed. - levothyroxine (SYNTHROID) 50 mcg tablet Take 1 tablet by mouth every afternoon. - onabotulinum toxin type A (BOTOX) 100 unit solr Inject 200 units IM in office by neurologist for cervical dystonia. - triHEXYphenidyl (ARTANE) 5 mg tablet Take 1 tablet by mouth three times daily. Problem List As Of Date: 01/19/2023 (None) Encounter Status:Closed by JULIETA LEWIS on 01/20/23 Normal [facility] Laboratory - Chemistry and C hemistry - challengeOrdered By: Dr. Ball on 07-08-2022 Free T4 [Mass/Vol] 0.99 ng/dL 0.76-1.46 [facility] Laboratory - Drug toxicology Ordered By: Dr. Ball on 07-08-2022 Amphetamines Ql (U) Negative <1000 ng/mL [facility] Benzodiazepines Ql (U) Negative < 200 ng/mL [facility] Cannabinoids Screen Ql (U) Negative < 50 ng/mL [facility] Cocaine Ql (U) Negative < 300 ng/mL [facility] Opiates Ql (U) Negative < 300 ng/mL [facility] No Panel InformationOrdered By: Dr. Ball on 07-08-2022 MDMA (Ecstasy) Screen Negative < 500 ng/mL [facility] Thyroid Stimulating Hormone (TSH) 2.97 uIU/mL 0.358-3.74 [facility] Urine Barbiturates Screen Negative < 200 ng/mL [facility] Urine Drug Screen Comment [facility] Comment on above: CONFIRMATORY TESTING FOR ALL POSITIVE URINE DRUG SCREENRESULTS WILL ONLY BE SENT OUT UPON PHYSICIAN ORDER. VISTA Urine Drug Screen methods provide only preliminaryanalytical test results. A more specific alternate chemicalmethod must be used in order to obtain a confirmedanalytical result. Gas chromatography/mass spectrometery(GC/MS) is the preferred confirmatory method. Clinicalconsideration and professional judgement should be appliedto any drug of abuse test result, particularly whenpreliminary positive results are used. URINE TCA TESTING MUST BE ORDERED SEPARATELY. USE TESTMNEMONIC: [facility] Urine Methadone Screen Negative < 300 ng/mL [facility] Urine phencyclidine (PCP) de tectionOrdered By: Dr. Ball on 07-08-2022 Phencyclidine Ql (U) Negative < 25 ng/mL [facility] Basophil percentageon 2021 Testosterone [Mass/Vol] 454 ng/dL 264-039 [facility] Work Phone: Comment on above: Adult male reference interval is based on a population ofhealthy nonobese males (BMI <30) between 19 and 39 yearsold. Jelena et.al. JCEM 2017,102;1682-4784. PMID:[id number]. Free testosterone percentage on 02-17-2022 Testosterone Free/Testosterone.tota l [Mass fraction] 2.05 % 1.50-4.20 [facility] Work Phone: Comment on above: Performed at: - [address] [id number] Director: Maxim Dubon PhD, Phone: [phone] at: - [facility] [address] [id number] Director: Jr Shelby MD, Phone: [phone] Laboratory - Chemistry and C hemistry - challengeon 02-17-2022 Free T4 [Mass/Vol] 1.00 ng/dL 0.76-1.46 [facility] Work Phone: No Panel Informationon 02-17 Free Triiodothyronine (T3) pg/dL 2.5 pg/mL 2.18-3.98 [facility] Work Phone: [phone] Thyroid Stimulating Hormone (TSH) 4.55 uIU/mL 0.358-3.74 [facility] Work Phone: [phone] Serum or plasma testosterone free measurement (mass/volume)on 02-17-2022 Testosterone Free [Mass/Vol] 9.31 ng/dL 5.00-21.00 [facility] Work Phone: Basophil percentageon 2021 Bilirubin [Mass/Vol] 0.70 mg/dL 0.20-1.00 [facility] Work Phone: Comment on above: For patients on eltr ombopag therapy, use of Dimension [place] TBIL is not recommended. Chloride [Moles/Vol] 106 mmol/L 98-107 [facility] Work Phone: Glucose [Mass/Vol] 95 mg/dL 74-106 [facility] Work Phone: [phone] Potassium [Moles/Vol] 3.8 mmol/L 3.5-5.1 [facility] Work Phone: [phone] Protein [Mass/Vol] 8.1 g/dL 6.4-8.2 [facility] Work Phone: [phone] Sodium [Moles/Vol] 137 mmol/L 136-145 [facility] Work Phone: [phone] WBC (Bld) [#/Vol] 5.9 10*3/uL 4.4-11.0 [facility] Work Phone: [phone] Blood erythrocytes count (nu mber/volume)on 10-18-2021 RBC (Bld) [#/Vol] 4.61 10*6/uL 4.6-6.2 [facility] Work Phone: [phone] Blood hemoglobin measurement (mass/volume)on 10-18-2021 Hemoglobin (Bld) [Mass/Vol] 14.8 g/dL 13.0-16.5 [facility] Work Phone: [phone] Blood platelet mean volumeon 10-18-2021 Platelet mean volume (Bld) [Entitic vol] 11.8 fL 6.2-12.0 [facility] Work Phone: [phone] Determination of erythrocyte mean corpuscular volume (MCV)on 10-18-2021 MCV (RBC) [Entitic vol] 92.6 fL 80-94 [facility] Work Phone: [phone] Hematocrit Auto (Bld) [Volum e fraction]on 10-18-2021 Hematocrit (Bld) [Volume fraction] 42.7 % 40-54 [facility] Work Phone: [phone] Iron measurement (mass/mass) on 10-18-2021 Iron (Unsp spec) [Mass/Mass] 109 ug/dL 65-175 [facility] Work Phone: [phone] Laboratory - Chemistry and C hemistry - challengeon 10-18-2021 ALP [Catalytic activity/Vol] 98 U/L 45-117 [facility] Work Phone: [phone] ALT [Catalytic activity/Vol] 19 U/L 16-61 [facility] Work Phone: [phone] CO2 [Moles/Vol] 23.0 mmol/L 21.0-32.0 [facility] Work Phone: [phone] Free T4 [Mass/Vol] 1.01 ng/dL 0.76-1.46 [facility] Work Phone: [phone] Globulin (S) [Mass/Vol] 3.9 g/dL 2.2-4.2 [facility] Work Phone: [phone] Urea nitrogen/Creatinine [Mass ratio] 12.6 mg/mg 10-20 [facility] Work Phone: [phone] Laboratory - Hematology and Cell countson 10-18-2021 Erythrocyte distribution width (RBC) [Entitic vol] 43.4 fL 35.1-43.9 [facility] Work Phone: [phone] Erythrocyte distribution width (RBC) [Ratio] 12.7 % 11.6-14.6 [facility] Work Phone: [phone] MCH (RBC) [Entitic mass] 32.1 pg 27.0-32.0 [facility] Work Phone: [phone] MCHC Auto (RBC) [Mass/Vol]on 10-18-2021 MCHC (RBC) [Mass/Vol] 34.7 g/dL 32-36 [facility] Work Phone: [phone] No Panel Informationon 10-18 Estimated GFR (MDRD) Amer 86 mL/min >60 [facility] Work Phone: [phone] Comment on above: GFR Calc Estimated GFR (MDRD) Non-Af Amer 71 mL/min >60 [facility] Work Phone: [phone] Comment on above: Non- GFR Calc Free Triiodothyronine (T3) pg/dL 2.7 pg/mL 2.18-3.98 [facility] Work Phone: [phone] Parathyroid Hormone (Intact) 35.4 pg/mL 18.4-80.1 [facility] Work Phone: [phone] Thyroid Stimulating Hormone (TSH) 3.95 uIU/mL 0.358-3.74 [facility] Work Phone: [phone] Total Iron Binding Capacity 313 ug/dL 250-450 [facility] Work Phone: [phone] Platelets bldon 10-18-2021 Platelets (Bld) [#/Vol] 143 10*3/uL 150-450 [facility] Work Phone: [phone] Serum or plasma albumin song urement (mass/volume)on 10-18-2021 Albumin [Mass/Vol] 4.2 g/dL 3.2-5.0 [facility] Work Phone: [phone] Serum or plasma albumin/glob ulin mass ratioon 10-18-2021 Albumin/Globulin [Mass ratio] 1.1 {ratio} 0.9-2.4 [facility] Work Phone: Serum or plasma calcium song urement (mass/volume)on 10-18-2021 Calcium [Mass/Vol] 9.6 mg/dL 8.5-10.1 [facility] Work Phone: Serum or plasma creatinine m easurement (mass/volume)on 10-18-2021 Creatinine [Mass/Vol] 1.11 mg/dL 0.70-1.30 [facility] Work Phone: Comment on above: The validity of the calculated GFR & GFRAA in patients over 70 years has not been determined. Clinical correlation is essential. Serum or plasma ferritin tere surement (mass/volume)on 10-18-2021 Ferritin [Mass/Vol] 144 ng/mL 26-388 [facility] Work Phone: Serum or plasma urea nitroge n measurement (mass/volume)on 10-18-2021 Urea nitrogen [Mass/Vol] 14 mg/dL 7-18 [facility] Work Phone: Thin prep Papanicolaou smear with manual screeningon 10-18-2021 Thin prep Papanicolaou smear with manual screening 24 U/L 15-37 [facility] Work Phone: Thin prep Papanicolaou smear with manual screening 8 5-15 [facility] Work Phone: Laboratory - Chemistry and C hemistry - challengeon 07-22-2021 Free T4 [Mass/Vol] 0.73 ng/dL 0.76-1.46 [facility] Work Phone: [phone] No Panel Informationon 07-22 Free Triiodothyronine (T3) pg/dL 2.6 pg/mL 2.18-3.98 [facility] Work Phone: Thyroid Stimulating Hormone (TSH) 7.70 uIU/mL 0.358-3.74 [facility] Work Phone: Vital Signs Date Time Vital Sign Value Performing Clinician Jhoanai earlene 01-12-2025 10:28-0400 Body height 177.[address] Chinedu Guerra MD Work Phone: [facility] 01-12-2025 10:28-0400 Body mass index (BMI) [Ratio] 25.8 kg/m2 Dr. Chinedu Guerra MD Work Phone: [facility] 01-12-2025 10:28-0400 Body temperature 97.8 [degF] Dr. Chinedu Guerra MD Work Phone: [facility] 01-12-2025 10:28-0400 Body weight 81.[address] Chinedu Guerra MD Work Phone: [facility] 01-12-2025 10:28-0400 Diastolic blood pressure 69 mm[Hg] Dr. Chinedu Guerra MD Work Phone: [facility] 01-12-2025 10:28-0400 Heart rate 67 /min Dr. Chinedu Guerra MD Work Phone: [facility] 01-12-2025 10:28-0400 Respiratory rate 16 /min Dr. Chinedu Guerra MD Work Phone: [facility] 01-12-2025 10:28-0400 SaO2% (BldA) [Mass fraction] 98 % Dr. Chinedu Guerra MD Work Phone: [facility] 01-12-2025 10:28-0400 Systolic blood pressure 112 mm[Hg] Dr. Chinedu Guerra MD Work Phone: [facility] 10-05-2024 10:58-0400 Body height 177.[address] Chinedu Guerra MD Work Phone: [facility] 10-05-2024 10:58-0400 Body mass index (BMI) [Ratio] 26.4 kg/m2 Dr. Chinedu Guerra MD Work Phone: [facility] 10-05-2024 10:58-0400 Body temperature 98.4 [degF] Dr. Chinedu Guerra MD Work Phone: [facility] 10-05-2024 10:58-0400 Body weight 83.[address] Chinedu Guerra MD Work Phone: [facility] 10-05-2024 10:58-0400 Diastolic blood pressure 59 mm[Hg] Dr. Chinedu Guerra MD Work Phone: [facility] 10-05-2024 10:58-0400 Heart rate 73 /min Dr. Chinedu Guerra MD Work Phone: [facility] 10-05-2024 10:58-0400 Respiratory rate 14 /min Dr. Chinedu Guerra MD Work Phone: [facility] 10-05-2024 10:58-0400 SaO2% (BldA) [Mass fraction] 97 % Dr. Chinedu Guerra MD Work Phone: [facility] 10-05-2024 10:58-0400 Systolic blood pressure 97 mm[Hg] Dr. Chinedu Guerra MD Work Phone: [facility] 09-13-2024 10:16-0400 Body temperature 98.4 [degF] Dr. Chinedu Guerra MD Work Phone: [facility] 09-13-2024 10:16-0400 Diastolic blood pressure 80 mm[Hg] Dr. Chinedu Guerra MD Work Phone: [facility] 09-13-2024 10:16-0400 Heart rate 68 /min Dr. Chinedu Guerra MD Work Phone: [facility] 09-13-2024 10:16-0400 Respiratory rate 17 /min Dr. Chinedu Guerra MD Work Phone: [facility] 09-13-2024 10:16-0400 SaO2% (BldA) [Mass fraction] 98 % Dr. Chinedu Guerra MD Work Phone: [facility] 09-13-2024 10:16-0400 Systolic blood pressure 104 mm[Hg] Dr. Chinedu Guerra MD Work Phone: [facility] 09-24-2023 15:16-0400 Diastolic blood pressure 60 mm[Hg] Cj Dominguez MD Work Phone: [facility] 09-24-2023 15:16-0400 Systolic blood pressure 108 mm[Hg] Cj Dominguez MD Work Phone: [facility] 09-24-2023 15:12-0400 Heart rate 76 /min Cj Dominguez MD Work Phone: [facility] 09-24-2023 15:12-0400 SaO2% (BldA) [Mass fraction] 96 % Cj Dominguez MD Work Phone: [facility] 07-16-2023 11:05-0400 Body temperature 98 [degF] Dr. Chinedu Guerra Work Phone: [facility] 07-16-2023 11:05-0400 Body weight 81.[address] Chinedu Guerra Work Phone: [facility] 07-16-2023 11:05-0400 Diastolic blood pressure 68 mm[Hg] Dr. Chinedu Guerra Work Phone: [facility] 07-16-2023 11:05-0400 Heart rate 68 /min Dr. Chinedu Guerra Work Phone: [facility] 07-16-2023 11:05-0400 Respiratory rate 15 /min Dr. Chinedu Guerra Work Phone: [facility] 07-16-2023 11:05-0400 SaO2% (BldA) [Mass fraction] 98 % Dr. Chinedu Guerra Work Phone: [facility] 07-16-2023 11:05-0400 Systolic blood pressure 115 mm[Hg] Dr. Chinedu Guerra Work Phone: [facility] 07-01-2023 15:33-0400 Body height 177.8 cm Jessica Rivas MD Work Phone: [facility] 07-01-2023 15:33-0400 Body weight 81.55 kg Jessica Rivas MD Work Phone: [facility] 07-01-2023 15:33-0400 Diastolic blood pressure 73 mm[Hg] Jessica Rivas MD Work Phone: [facility] 07-01-2023 15:33-0400 Heart rate 55 /min Jessica Rivas MD Work Phone: [facility] 07-01-2023 15:33-0400 Systolic blood pressure 122 mm[Hg] Jessica Rivas MD Work Phone: [facility] 04-01-2023 13:30-0500 Body height 177.8 cm Jessica Rivas MD Work Phone: [facility] 04-01-2023 13:30-0500 Body weight 81.65 kg Jessica Rivas MD Work Phone: [facility] 04-01-2023 13:30-0500 Diastolic blood pressure 75 mm[Hg] Jessica Rivas MD Work Phone: [facility] 04-01-2023 13:30-0500 Heart rate 86 /min Jessica Rivas MD Work Phone: [facility] 04-01-2023 13:30-0500 Systolic blood pressure 115 mm[Hg] Jessica Rivas MD Work Phone: [facility] 03-17-2023 11:22-0500 Body height 177.[address] Chinedu Guerra Work Phone: [facility] 03-17-2023 11:22-0500 Body mass index (BMI) [Ratio] 25.7 kg/m2 Dr. Chinedu Guerra Work Phone: [facility] 03-17-2023 11:22-0500 Body temperature 98.6 [degF] Dr. Chinedu Guerra Work Phone: [facility] 03-17-2023 11:22-0500 Body weight 81.[address] Chinedu Guerra Work Phone: [facility] 03-17-2023 11:22-0500 Diastolic blood pressure 72 mm[Hg] Dr. Chinedu Guerra Work Phone: [facility] 03-17-2023 11:22-0500 Heart rate 61 /min Dr. Chinedu Guerra Work Phone: [facility] 03-17-2023 11:22-0500 Respiratory rate 17 /min Dr. Chinedu Guerra Work Phone: [facility] 03-17-2023 11:22-0500 SaO2% (BldA) [Mass fraction] 96 % Dr. Chinedu Guerra Work Phone: [facility] 03-17-2023 11:22-0500 Systolic blood pressure 108 mm[Hg] Dr. Chinedu Guerra Work Phone: [facility] 12-18-2022 11:54-0400 Body height 177.8 cm Jessica Rivas MD Work Phone: [facility] 12-18-2022 11:54-0400 Body weight 80.51 kg Jessica Rivas MD Work Phone: [facility] 12-18-2022 11:54-0400 Diastolic blood pressure 61 mm[Hg] Jessica Rivas MD Work Phone: [facility] 12-18-2022 11:54-0400 Heart rate 60 /min Jessica Rivas MD Work Phone: [facility] 12-18-2022 11:54-0400 SaO2% (BldA) [Mass fraction] 98 % Jessica Rivas MD Work Phone: [facility] 12-18-2022 11:54-0400 Systolic blood pressure 103 mm[Hg] Jessica Rivas MD Work Phone: [facility] 11-05-2022 14:58-0400 Body height 177.8 cm Jessica Rivas MD Work Phone: [facility] 11-05-2022 14:58-0400 Body weight 82.1 kg Jessica Rivas MD Work Phone: [facility] 11-05-2022 14:58-0400 Diastolic blood pressure 61 mm[Hg] Jessica Rivas MD Work Phone: [facility] 11-05-2022 14:58-0400 Heart rate 68 /min Jessica Rivas MD Work Phone: [facility] 11-05-2022 14:58-0400 SaO2% (BldA) [Mass fraction] 96 % Jessica Rivas MD Work Phone: [facility] 11-05-2022 14:58-0400 Systolic blood pressure 111 mm[Hg] Jessica Rivas MD Work Phone: [facility] 07-08-2022 11:51-0400 Body height 177.[address] Chinedu Guerra Work Phone: [facility] 07-08-2022 11:51-0400 Body mass index (BMI) [Ratio] 28 kg/m2 Dr. Chinedu Guerra Work Phone: [facility] 07-08-2022 11:51-0400 Body temperature 98.4 [degF] Dr. Chinedu Guerra Work Phone: [facility] 07-08-2022 11:51-0400 Body weight 88.[address] Chinedu Guerra Work Phone: [facility] 07-08-2022 11:51-0400 Diastolic blood pressure 50 mm[Hg] Dr. Chinedu Guerra Work Phone: [facility] 07-08-2022 11:51-0400 Heart rate 68 /min Dr. Chinedu Guerra Work Phone: [facility] 07-08-2022 11:51-0400 Respiratory rate 17 /min Dr. Chinedu Guerra Work Phone: [facility] 07-08-2022 11:51-0400 SaO2% (BldA) [Mass fraction] 98 % Dr. Chinedu Guerra Work Phone: [facility] 07-08-2022 11:51-0400 Systolic blood pressure 92 mm[Hg] Dr. Chinedu Guerra Work Phone: [facility] 02-17-2022 11:00-0400 Body height 177.[address] Chinedu Guerra Work Phone: [facility] Work Phone: 02-17-2022 11:00-0400 Body mass index (BMI) [Ratio] 29.2 kg/m2 Dr. Chinedu Guerra Work Phone: [facility] Work Phone: 02-17-2022 11:00-0400 Body temperature 98.4 [degF] Dr. Chinedu Guerra Work Phone: [facility] Work Phone: 02-17-2022 11:00-0400 Body weight 92.[address] Chinedu Guerra Work Phone: [facility] Work Phone: 02-17-2022 11:00-0400 Diastolic blood pressure 58 mm[Hg] Dr. Chinedu Guerra Work Phone: [facility] Work Phone: 02-17-2022 11:00-0400 Heart rate 62 /min Dr. Chinedu Guerra Work Phone: [facility] Work Phone: 02-17-2022 11:00-0400 Respiratory rate 17 /min Dr. Chinedu Guerra Work Phone: [facility] Work Phone: 02-17-2022 11:00-0400 SaO2% (BldA) [Mass fraction] 97 % Dr. Chinedu Guerra Work Phone: [facility] Work Phone: 02-17-2022 11:00-0400 Systolic blood pressure 110 mm[Hg] Dr. Chinedu Guerra Work Phone: [facility] Work Phone: 10-15-2021 08:03-0400 Body height 177.[address] Chinedu Guerra Work Phone: [facility] Work Phone: 10-15-2021 08:03-0400 Body mass index (BMI) [Ratio] 31.6 kg/m2 Dr. Chinedu Guerra Work Phone: [facility] Work Phone: 10-15-2021 08:03-0400 Body temperature 98.2 [degF] Dr. Chinedu Guerra Work Phone: [facility] Work Phone: 10-15-2021 08:03-0400 Body weight 99.[address] Chinedu Guerra Work Phone: [facility] Work Phone: 10-15-2021 08:03-0400 Diastolic blood pressure 64 mm[Hg] Dr. Chinedu Guerra Work Phone: [facility] Work Phone: 10-15-2021 08:03-0400 Heart rate 64 /min Dr. Chinedu Guerra Work Phone: [facility] Work Phone: 10-15-2021 08:03-0400 Respiratory rate 16 /min Dr. Chinedu Guerra Work Phone: [facility] Work Phone: 10-15-2021 08:03-0400 SaO2% (BldA) [Mass fraction] 98 % Dr. Chinedu Guerra Work Phone: [facility] Work Phone: 10-15-2021 08:03-0400 Systolic blood pressure 110 mm[Hg] Dr. Chinedu Guerra Work Phone: [facility] Work Phone: 07-22-2021 15:02-0400 Body mass index (BMI) [Ratio] 31.8 kg/m2 Dr. Chinedu Guerra Work Phone: [facility] Work Phone: 07-22-2021 15:02-0400 Body temperature 97.7 [degF] Dr. Chinedu Guerra Work Phone: [facility] Work Phone: 07-22-2021 15:02-0400 Body weight 100.[address] Chinedu Guerra Work Phone: [facility] Work Phone: 07-22-2021 15:02-0400 Diastolic blood pressure 68 mm[Hg] Dr. Chinedu Guerra Work Phone: [facility] Work Phone: 07-22-2021 15:02-0400 Heart rate 80 /min Dr. Chinedu Guerra Work Phone: [facility] Work Phone: 07-22-2021 15:02-0400 Respiratory rate 14 /min Dr. Chinedu Guerra Work Phone: [facility] Work Phone: 07-22-2021 15:02-0400 SaO2% (BldA) [Mass fraction] 99 % Dr. Chinedu Guerra Work Phone: [facility] Work Phone: 07-22-2021 15:02-0400 Systolic blood pressure 110 mm[Hg] Dr. Chinedu Guerra Work Phone: [facility] Work Phone: Encounters Encounter Date Encounter Type Care Provider Facility Start: 02-27-2025 End: 02-27-2025 [facility] [place]ined[place] [place]: 01-12-2025 End: 01-12-[address] Earl Ball MD -[facility] Work Phone: Start: 01-12-2025 End: 01-12-[address] Chniedu Guerra MD Work Phone: -[facility] Start: 10-05-2024 End: 10-05-[address] Earl Ball MD -[facility] Work Phone: Start: 10-05-2024 End: 10-05-[address] Chinedu Guerra MD Work Phone: [facility] Work Phone: Start: 09-13-2024 End: 09-13-[address] Earl Ball MD -[facility] Work Phone: Start: 09-13-2024 End: 09-13-[address] Chinedu Guerra MD Work Phone: [facility] Work Phone: Start: 05-12-2024 End: 05-12-2024 ambulatory [place]inedu Guerra [place] [place]: 12-22-2023 End: 12-22-2023 Telephone encounter Cj Dominguez MD Work Phone: [facility] Comment on above: Patient Question/FU after 09/24/23 OV Start: 09-28-2023 Telephone encounter Cj wright MD Work Phone: [facility] Comment on above: Imaging Request (MRI Cervical Spine ) Start: 09-24-2023 End: 09-25-2023 ambulatory CHINEDU GUERRA Facility:[facility] Start: 09-24-2023 End: 09-24-2023 Office outpatient visit 40 minutes Cj Dominguez MD Work Phone: [facility] Comment on above: Cervical dystonia (P rimary Dx); Cervical spinal stenosis Start: 08-17-2023 Telephone encounter Jessica cherry MD Work Phone: Neurology Comment on above: Patient Question Start: 07-17-2023 End: 07-17-[address] Chinedu Guerra Work Phone: [facility] Work Phone: Start: 07-17-2023 End: 07-17-[address] Chinedu Guerra Work Phone: [facility] Work Phone: Start: 07-16-2023 End: 07-16-[address] Chinedu Guerra Work Phone: [facility] Work Phone: Start: 07-01-2023 End: 07-01-2023 ambulatory CHINEDU GUERRA Facility:[facility] Start: 07-01-2023 End: 07-01-2023 Patient encounter procedure Jessica Rivas MD Work Phone: Neurology Comment on above: Cervical dystonia (P rimary Dx) Start: 04-09-2023 Non-patient / Non-visit Dr. Xochilt Guerra Work Phone: [facility] Start: 04-09-2023 End: 04-09-[address] Chinedu Guerra Work Phone: [facility] Work Phone: Start: 04-09-2023 End: 04-09-[address] Chinedu Guerra Work Phone: [facility] Work Phone: Start: 04-01-2023 End: 04-01-2023 ambulatory CHINEDU GUERRA Facility:[facility] Start: 04-01-2023 End: 04-01-2023 Patient encounter procedure Jessica Rivas MD Work Phone: Neurology Comment on above: Cervical dystonia (P rimary Dx) Start: 03-17-2023 End: 03-17-[address] Chinedu Guerra Work Phone: [facility] Work Phone: Start: 01-19-2023 Telephone encounter Jessica cherry MD Work Phone: Neurology Comment on above: Patient Question Start: 12-18-2022 End: 12-18-2022 Patient encounter procedure Jessica Rivas MD Work Phone: Neurology Comment on above: Cervical dystonia (P rimary Dx) Start: 11-14-2022 Telephone encounter Jessica cherry MD Work Phone: Neurology Comment on above: Insurance Authorizat ion ([employer]) Start: 11-05-2022 End: 11-05-2022 Patient encounter procedure Jessica Rivas MD Work Phone: Neurology Comment on above: Cervical dystonia (P rimary Dx) Start: 10-31-2022 Telephone encounter Jessica cherry MD Work Phone: Neurology Comment on above: Appointment Start: 07-09-[address] Chinedu Guerra Work Phone: [facility] Start: 07-08-2022 End: 07-08-[address] Chinedu Guerra Work Phone: [facility] Work Phone: Start: 07-08-2022 End: 07-08-[address] Chinedu Guerra Work Phone: [facility] Start: 07-08-2022 End: 07-08-[address] Chinedu Guerra Work Phone: [facility] Start: 02-20-2022 Non-patient / Non-visit Dr. Xochilt Guerra Work Phone: [facility] Start: 02-17-2022 End: 02-17-[address] Chinedu Guerra Work Phone: [facility] Work Phone: Start: 02-17-2022 End: 02-17-[address] Chinedu Guerra Work Phone: [facility] Start: 02-17-2022 End: 02-17-[address] Chinedu Guerra Work Phone: [facility] Start: 10-18-2021 End: 10-18-[address] Chinedu Guerra Work Phone: [facility] Start: 10-15-2021 End: 10-15-[address] Chinedu Guerra Work Phone: [facility] Start: 07-22-2021 End: 07-22-[address] Chinedu Guerra Work Phone: [facility] Start: 07-22-2021 End: 07-22-[address] Chinedu Guerra Work Phone: [facility] Procedures Date Procedure Procedure Detail Performing Clinician Start: 07-17-2023 Plain X-ray of shoulder Dr. Chinedu Guerra Work Phone: Plan of Treatment Date Care Activity Detail Author Start: 12-20-2023 Covid-19 Vaccine ( season) Covid-19 Vaccine ( season) [facility] Start: 12-20-2023 Influenza vaccination [facility] Start: 09-30-2023 End: 09-30-2023 Patient encounter procedure 09/30/2023 2:00 PM EDT Office Visit Neurology [address] [place] [address] Jessica Rivas MD [address] [place], [place] [id number] Botox 300 units with EMG #3 of 3. Exp 11/13/23. Neurology Comment on above: Botox 300 units with EMG #3 of 3. Exp 11/13/23. Start: 07-16-2023 Patient referral [facility] Work Phone: Start: 04-20-2023 Behavioral Health Screening Behavioral Health Screening [facility] Start: 04-20-[address] [facility] Start: 12-19-2022 Covid-19 Vaccine ( season) Covid-19 Vaccine ( season) [facility] Start: 12-19-2022 Influenza vaccination C [facility] Start: 04-20-2022 [facility] Start: 10-18-2021 Ceruloplasmin [Mass/volume] in Serum or Plasma [facility] Work Phone: Start: 10-18-2021 Copper [Moles/volume ] in Serum or Plasma [facility] Work Phone: Start: 07-22-2021 Patient referral [facility] Work Phone: Start: 05-10-2021 COVID-19 VACCINE (6 - Pfizer series) COVID-19 VACCINE (6 - Pfizer series) [facility] Start: 2020 RSV Vaccine (1 - 1-d ose 60+ series) RSV Vaccine (1 - 1-dose 60+ series) [facility] Start: 2015 PROSTATE CANCER SCREENING DISCUSSION PROSTATE CANCER SCREENING DISCUSSION [facility] Start: 2015 Prostate specific antigen measurement Prostate Cancer Screening Discussion [facility] Start: 2010 SHINGRIX VACCINE (1 of 2) SHINGRIX VACCINE (1 of 2) [facility] Start: 2005 COLOGUARD (FIT-DNA) COLOGUARD (FIT-D NA) [facility] Start: 2005 Colonoscopy COLONOSCOPY [facility] Start: 2005 COLORECTAL CANCER SCREENING COLORECTAL CANCER SCREENING [facility] Start: [address] COLONOGRAPHY [facility] Start: 2005 DIABETES SCREEN DIABETES SCREEN [facility] Start: 2005 Diabetes Screening Diabetes Screenin g [facility] Start: 2005 FECAL OCCULT BLOOD FECAL OCCULT BLOO D [facility] Start: 2005 Screening for malign ant neoplasm of colon [facility] Start: [address] [facility] Start: 1995 Lipid 1996 panel - S lauren or Plasma Lipid Screening [facility] Start: 1995 Lipid panel Lipid Screening [facility] Start: 1995 LIPID SCREEN LIPID SCREEN [facility] Start: 1979 Urine microalbumin profile [facility] Start: 1978 Anxiety Screening Anxiety Screening [facility] Start: 1978 Depression Screening Depression Scre ening [facility] Start: 1978 HEPATITIS C SCREENING HEPATITIS C [facility] Start: 1978 Hepatitis C screening Hepatitis C [facility] Start: 1978 HIV SCREENING HIV SCREENING [facility] Start: 1978 HIV screening HIV Screening [facility] Start: 1960 COVID-19 VACCINE (#1) COVID-19 VACCI NE (#1) [facility] Ceruloplasmin [Mass/volume] in Serum or Plasma [facility] Work Phone: Copper [Moles/volume ] in Serum or Plasma [facility] Work Phone: MR Brain WO and W contrast IV [facility] Work Phone: MR Cervical spine [facility] Work Phone: Patient referral [facility] Work Phone: XR Orbit - bilateral Views for foreign body [facility] Work Phone: [facility] Immunizations Immunization Date Immunization Notes Care Provider Fa edin 03-15-2021 Covid (Pfizer) Dr. Chinedu clemons Work Phone: [facility] 07-24-2020 Covid (Pfizer) Dr. Chinedu clemons Work Phone: [facility] 07-04-2020 Covid (Pfizer) Dr. Chinedu clemons Work Phone: [facility] Payers Date Payer Category Payer Self-pay [id number] 2018 Unknown MMO [employer] PPO [id number] 2018-Present [phone] [address] [place] [address] PPO [id number] 2018 [id number] Unknown [facility] P[employer]AN [id number] Unknown [id number] Unknown [id number] Unknown [id number] Unknown [id number] Social History Date Type Detail Facility Start: 10-15-2021 End: 07-16-2023 Tobacco smoking status ALIS Unknown if ever smoked [facility] Start: 07-17-[address] [facility] Start: 1960 Sex Assigned At Male [facility] Start: 1960 Sex Assigned At Not on file [facility] Start: 11-05-2022 End: 09-18-2023 Gender identity Not on file [facility] Start: 11-05-2022 Tobacco smoking stat us ALIS Ex-smoker [facility] End: 02-18-1991 History of tobacco use Current smoker [facility] End: 02-18-1991 History of tobacco use Cigarette Smoker [facility] Start: 11-05-2022 Tobacco use and exposure User of smokeless tobacco [facility] History of tobacco use Chews Tobacco [facility] Start: 11-05-2022 End: 09-18-2023 History of Social function [facility] National Score (1-100), lower number is lower risk 75 [facility] Start: 08-19-2023 Tobacco smoking stat us NHIS Smokes tobacco daily (finding) [facility] Clinical Notes 10-31-2022 to 10-05-2024 Note Date & Type Note Facility 10-05-2024 Evaluation note Diagnosis Onset Date Resolution Myalgia acute October 05 10:58am Neck pain acute October 05 10:58am [facility] Work Phone: 1([phone]) 572-198205-27-2025 Evaluation note* Diagnosis Onset Date Resolution Status Admit Date Cervical dystonia acute August 10:02am Cubital tunnel syndrome on left acut e September 13, 2024 10:02am Myalgia acute September 13, 2024 10:02am Neck pain acute September 13, 2024 10:02am Carpal tunnel syndrome of le ft wrist chronic September 13, 2024 1 0:02am [place] [facility] Work Phone: 1(304) 982-477209-03-2024 Telephone encounter Note* Telephone Encounter - Serjio Mcfadden RN - 12/22/2023 3:38 PM EDT Left detailed message on identified voicemail informing pt that we didn't see anything on the MRI that could be causing his symptoms. Also informed pt that Dr. Mohan is in support of neck injections if pt is agreeable. Asked pt to call and make us aware of his preference moving forward. [facility]09-03-2024 Miscellaneous Notes* Telephone Encounter - Serjio Mcfadden RN - 12/22/2023 3:38 PM EDT Left detailed message on identified voicemail informing pt that we didn't see anything on the MRI that could be causing his symptoms. Also informed pt that Dr. Mohan is in support of neck injections if pt is agreeable. Asked pt to call and make us aware of his preference moving forward. * Telephone Encounter - Cj Dominguez MD - 12/22/2023 3:32 PM EDT [place], Would it be possible to reach out to the patient? I don't see anything on the MRI that could be causing his symptoms. Dr. Mohan and I touched base. If he'd like for me to inject the neck then Dr. Mohan is supportive of that. Thanks! -Cj * [facility] 11:32 AM EDT Pt called to get update on next steps discussed with Dr. Dominguez at 09/24/23 OV - [phone]. 09/24/2023 Visit: Please have a copy of your MRIs sent to me. I am including my address below I will touch base with Dr. Rivas about injection suggestions I will reach out to you after reviewing the MRI. Please let me know how the injection goes 2 monthsafterward Follow up to be determined CDs received on 10/14/23 and were uploaded. 09/24/23 FUV w/Dr. Dominguez No future FUV scheduled [facility] Telephone encounter Note * Telephone Encounter - Cj Dominguez MD - 12/22/2023 3:32 PM EDT [place], Would it be possible to reach out to the patient? I don't see anything on the MRI that could be causing his symptoms. Dr. Mohan and I touched base. If he'd like for me to inject the neck then Dr. Mohan is supportive of that. Thanks! -Cj [facility] Work Phone: [phone] Telephone encounter Note* Telephone Encounter - Irish Koosa - 12/22/2023 11:32 AM EDT Pt called to get update on next steps discussed with Dr. Dominguez at 09/24/23 OV - [phone]. 09/24/2023 Visit: Please have a copy of your MRIs sent to me. I am including my address below I will touch base with Dr. Rivas about injection suggestions I will reach out to you after reviewing the MRI. Please let me know how the injection goes 2 monthsafterward Follow up to be determined CDs received on 10/14/23 and were uploaded. 09/24/23 FUV w/Dr. Dominguez No future FUV scheduled [facility]06-10-2024 Telephone encounter Note* Telephone Encounter - Cj Dominguez MD - 09/28/2023 4:00 PM EDT Thank you Akash! [facility] Work Phone: [phone] Miscellaneous Notes* Telephone Encounter - Cj Dominguez MD - 09/28/2023 4:00 PM EDT Thank you Akash! * Telephone Encounter - Winston Olivia - 09/28/2023 3:18 PM EDT Report received and scanned to chart. * Telephone Encounter - Maciej Edwards - 09/28/2023 10:24 AM EDT Pt's phoned stating that they are unable to get the images and [facility] needs us to request. Called to request (p) [phone] and they are faxing report and mailing images on disc. documented in this encounter[facility] Telephone encounter Note * Telephone Encounter - Winston Olivia - 09/28/2023 3:18 PM EDT Report received and scanned to chart. [facility]06-10-2024 Telephone encounter Note* Telephone Encounter - Maciej Edwards - 09/28/2023 10:24 AM EDT Pt's phoned stating that they are unable to get the images and [facility] needs us to request. Called to request (p) [phone] and they are faxing report and mailing images on disc. [facility]06-06-2024 Instructions* Patient Instructions* Cj Dominguez MD - 09/24/2023 4:01 PM EDT It was a pleasure to see you today. Here is a reminder of the plan we made: 09/24/2023 Visit: Please have a copy of your MRIs sent to me. I am including my address below I will touch base with Dr. Rivas about injection suggestions I will reach out to you after reviewing the MRI. Please let me know how the injection goes 2 monthsafterward Follow up to be determined Cj Dominguez [place] [facility] [address] [place] [address] / [address], [address] documented in this encounterMemorial [facility]24 NoteHNO ID: [id number] Author: CJ DOMINGUEZ MD Service: ? Author Type: Physician Type: Progress Notes Filed: 09/24/2023 17:00 Note Text: [facility] - NEW PATIENT EVALUATION Primary Care Provider: Chinedu Guerra MD [address] [facility] [address] [facility] [address] Dear Chinedu Guerra MD: I had the pleasure of evaluating Mr. Barrios in our clinic today. As you know he is a 63 year old left-handed male who presents for evaluation of cervical dystonia since 2020. He is seen with his . Subjective HISTORY OF PRESENT ILLNESS: Initial HPI Daughter noted head twitching March 2021. Denies any trauma to head or neck or medication prior to this. Has tremor/twitching/pulling to the right.Gets dysarthria. Eating tends to make symptoms significantly more severe. Part of face will also be distorted with CD is severe. When he gets up in the morning for a period of 5 to 25-30 minutes he will be normal, followed by inflammation in the back of his neck. This is an aching to the right of the spine. Feels like a muscular spasm that is 3/10 in intensity. Has a sensory to trick of applying pressure to his right cheek. Initially was given Sinemet, Artane and clonazepam by a Neurologist in [place] without relief before he was referred for Botox. With 100 units there was no relief. Ultimately dose was increased to 300 units but still not helping at all. There is no wearing off now that it's been 3 months. When he turns his head to the left or right his words will be slurred at times. Movement Disorder medication schedule-as of the start of the visit: Medications Questionnaires: In addition, the following areas that may be affected by abnormal involuntary movements were evaluated: Daily activities Difficulties with eatin (none) Difficulties in dressin (none) Difficulties with hygiene activities: 0 (none) Difficulties with handwriting: Yes (slight) Difficulties with doing hobbies and other activities: 0 (none) Difficulties turning in bed: 0 (none) Difficulties getting out of bed, car or chair: 0 (none) Tremors/Gait/Balance Shaking or tremors: 0 (none) Walking and balance problems: 0 (none) Number of falls in the Last Month: 0 Gait freezin (none) Autonomic/Pain Lightheadeness on standin (none) Urinary problems: 0 (none) Constipation problems: 0 (none) Pain and other sensations: Yes (moderate) Speech/Swallowing Speech problems: Yes (slight) Droolin (none) Chewing and swallowing problems: 0 (none) Sleep/Fatigue Sleep problems: 0 (none) Daytime sleepiness: 0 (none) Fatigue: 0 (none) Mood/Behavior Depression: PHQ-9 Score: 0 usually representing no significant (0-4) depression. Anxiety: JEROMY-7 Total Score: 0 usually representing no significant (0-4) anxiety. Finally, the following table shows the patient's overall global physical and mental health using the PROMIS scale: PROMIS-10 Flowsheet Row Office Visit from 09/24/2023 in [facility] Global Physical Health T Score 54.1 Global Mental Health T Score 56 0-10 Standard Pain Scale 3 *PROMIS-10 scoring scale: mean = 50, over 50 is above average, under 50 is below average ALLERGIES Allergen Reactions Hydrocodone Other: See Comments Flushed feeling, dry heaves Current Outpatient Medications Medication Sig carbidopa-levodopa (SINEMET 25-100) 25-100 mg per tablet triHEXYphenidyl (ARTANE) 5 mg tablet Take 1 tablet by mouth three times daily. levothyroxine (SYNTHROID) 50 mcg tablet Take 1 tablet by mouth every afternoon. aspirin 325 mg tablet Take 325 mg by mouth. As needed only (Patient not taking: Reported on 09/24/2023) ibuprofen (MOTRIN) 200 mg tablet Take 200 mg by mouth every 6 hours as needed. (Patient not taking: Reported on 09/24/2023) Flurbiprofen 100 mg tablet Take 100 mg by mouth three times daily as needed. (Patient not taking: Reported on 09/24/2023) clonazePAM (KLONOPIN) 0.5 mg tablet Take 1 tablet by mouth every 12 hours at 6 am and 6 pm. (Patient not taking: Reported on 09/24/2023) onabotulinum toxin type A (BOTOX) 100 unit solr Inject 200 units IM in office by neurologist for cervical dystonia. (Patient not taking: Reported on 09/24/2023) No current facility-administered medications for this visit. Past Medical and Surgical History: has a past medical history of Carpal tunnel syndrome, Cervical dystonia, Hypothyroidism, Iliotibial band friction syndrome, and Spasmodic torticollis. has a past surgical history that includes appendectomy and past surgical history of. Social History Tobacco Use Smoking status: Former Types: Cigarettes Quit date: 02/1991 Years since quittin.6 Smokeless tobacco: Current Types: Chew Family History: family history includes Heart disease in his father and mother; Osteoporosis in his mother. In addition, the patient denies any family history of PD/parkinsonism, tremor, other involuntary mov (more content not included)...[facility] 09-24-2023 History of Present illness Narrative* Cj Dominguez MD - 09/24/2023 3:26 PM EDT [facility] - NEW PATIENT EVALUATION Primary Care Provider: Chinedu Guerra MD [address] [facility] [address] [facility] [address] Dear Chinedu Guerra MD: I had the pleasure of evaluating Mr. Barrios in our clinic today. As you know he is a 63 year old left-handed male who presents for evaluation of cervical dystonia since 2020. He is seen with his . Subjective HISTORY OF PRESENT ILLNESS: Initial HPI Daughter noted head twitching March 2021. Denies any trauma to head or neck or medication prior to this. Has tremor/twitching/pulling to the right.Gets dysarthria. Eating tends to make symptoms significantly more severe. Part of face will also be distorted with CD is severe. When he gets up in the morning for a period of 5 to 25-30 minutes he will be normal, followed by inflammation in the back of his neck. This is an aching to the right of the spine. Feels like a muscular spasm that is 3/10 in intensity. Has a sensory to trick of applying pressure to his right cheek. Initially was given Sinemet, Artane and clonazepam by a Neurologist in [place] without relief beforehe was referred for Botox. With 100 units there was no relief. Ultimately dose was increased to 300units but still not helping at all. There is no wearing off now that it's been 3 months. When he turns his head to the left or right his words will be slurred at times. Movement Disorder medication schedule-as of the start of the visit: Medications Questionnaires: In addition, the following areas that may be affected by abnormal involuntary movements were evaluated: Daily activities Difficulties with eatin (none) Difficulties in dressin (none) Difficulties with hygiene activities: 0 (none) Difficulties with handwriting: Yes (slight) Difficulties with doing hobbies and other activities: 0 (none) Difficulties turning in bed: 0 (none) Difficulties getting out of bed, car or chair: 0 (none) Tremors/Gait/Balance Shaking or tremors: 0 (none) Walking and balance problems: 0 (none) Number of falls in the Last Month: 0 Gait freezin (none) Autonomic/Pain Lightheadeness on standin (none) Urinary problems: 0 (none) Constipation problems: 0 (none) Pain and other sensations: Yes (moderate) Speech/Swallowing Speech problems: Yes (slight) Droolin (none) Chewing and swallowing problems: 0 (none) Sleep/Fatigue Sleep problems: 0 (none) Daytime sleepiness: 0 (none) Fatigue: 0 (none) Mood/Behavior Depression: PHQ-9 Score: 0 usually representing no significant (0-4) depression. Anxiety: JEROMY-7 Total Score: 0 usually representing no significant (0-4) anxiety. Finally, the following table shows the patient's overall global physical and mental health using the PROMIS scale: PROMIS-10 Flowsheet Row Office Visit from 09/24/2023 in [facility] Global Physical Health T Score 54.1 Global Mental Health T Score 56 0-10 Standard Pain Scale 3 *PROMIS-10 scoring scale: mean = 50, over 50 is above average, under 50 is below average ALLERGIES Allergen Reactions Hydrocodone Other: See Comments Flushed feeling, dry heaves Current Outpatient Medications Medication Sig carbidopa-levodopa (SINEMET 25-100) 25-100 mg per tablet triHEXYphenidyl (ARTANE) 5 mg tablet Take 1 tablet by mouth three times daily. levothyroxine (SYNTHROID) 50 mcg tablet Take 1 tablet by mouth every afternoon. aspirin 325 mg tablet Take 325 mg by mouth. As needed only (Patient not taking: Reported on 09/24/2023) ibuprofen (MOTRIN) 200 mg tablet Take 200 mg by mouth every 6 hours as needed. (Patient not taking:Reported on 09/24/2023) Flurbiprofen 100 mg tablet Take 100 mg by mouth three times daily as needed. (Patient not taking: Reported on 09/24/2023) clonazePAM (KLONOPIN) 0.5 mg tablet Take 1 tablet by mouth every 12 hours at 6 am and 6 pm. (Patient not taking: Reported on 09/24/2023) onabotulinum toxin type A (BOTOX) 100 unit solr Inject 200 units IM in office by neurologist for cervical dystonia. (Patient not taking: Reported on 09/24/2023) No current facility-administered medications for this visit. Past Medical and Surgical History: has a past medical history of Carpal tunnel syndrome, Cervical dystonia, Hypothyroidism, Iliotibialband friction syndrome, and Spasmodic torticollis. has a past surgical history that includes appendectomy and past surgical history of. Social History Tobacco Use Smoking status: Former Types: Cigarettes Quit date: 02/1991 Years since quittin.6 Smokeless tobacco: Current Types: Chew Family History: family history includes Heart disease in his father and mother; Osteoporosis in his mother. In addition, the patient denies any family history of PD/parkinsonism, tremor, other involuntary movement disorders. Objective Physical Examination: Vital Signs: BP 108/60 (BP Site: Right Arm, BP Position: Sitting, BP Cuff Size: Regular Adult) Pulse 76 [id number]% None for this encounter General: Awake, alert, interactive, no acute distress, good nutritional status, normal development,well-kept Neurological Exam Mental Status Awake, alert and oriented to person, place and time. Recent and remote memory are intact. Speech isnormal. Language is fluent with no aphasia. Cranial Nerves Cranial nerves normal unless stated otherwise. Motor Normal muscle bulk throughout. Strength is 5/5 throughout all four extremities. Left hand weakness Left upper extremity bradykinesia (no decrement), none in lower No tremor Range of motion limited to the right, looking up. No difference tilting head for side to side. Leftshould elevation Anterocollis, slight right chin deviation. Head jerking to right and deviates downward while walking with some anterocollis. Reflexes Right Left Brachioradialis 2+ 2+ Biceps 2+ 2+ Patellar 2+ 2+ Achilles 1+ 1+ Assessment Mr. Barrios is a left-handed 63 year old male with cervical dystonia that has proven refractory to treatment, including high doses of botulinum toxin. It is however unusual that he's had zero response to injections, which raises the question of tolerance to Botox. Though very rare, it may be worthwhile to test for this during the next injection. Hi age and presentation go against what would be expected of idiopathic cervical dystonia. Remote whiplash injury does warrant review of his cervical spine imaging. There are also atypical features such as facial pulling that could potentially point toward Meige syndrome, though he is certain that there has not been any blepharospasm. The following are the current problems noted and addressed during this visit: Cervical spinal stenosis Cervical dystonia (primary encounter diagnosis) Plan 09/24/2023 Visit: Please have a copy of your MRIs sent to me. I am including my address below I will touch base with Dr. Rivas about injection suggestions I will reach out to you after reviewing the MRI. Please let me know how the injection goes 2 monthsafterward Follow up to be determined Cj Dominguez [facility] [address] / [address], [facility] Interested in clinical research? Not currently Thank you for allowing me to be part of the clinical care of this patient! I look forward to continued participation in the patient s care with you. Please do not hesitate to call with any questions. Sincerely, Cj Dominguez MD Associate Staff Movement disorders [facility] documented in this encounterMem[facility] Telephone encounter Note * Telephone Encounter - Jessica Rivas MD - 08/18/2023 5:16 PM EDT I'm sorry to hear that. I put a referral in, he should try to see Dr. Lester who I believe does a lot of botulinum toxin injections for dystonia. [phone] is her office number. [facility]04-30-2024 Miscellaneous Notes* Telephone Encounter - Jessica Rivas MD - 08/18/2023 5:16 PM EDT I'm sorry to hear that. I put a referral in, he should try to see Dr. Lester who I believe does a lot of botulinum toxin injections for dystonia. [phone] is her office number. * Telephone Encounter - Evelia Luciano RN - 08/17/2023 4:02 PM EDT Last office visit 07/01/23; Dr. Rivas had instructions for patient to let him know how he is doing. * Telephone Encounter - Nava Choi - 08/17/2023 2:24 PM EDT Linsey called and asked if someone from Dr. Rivas's clinical team could contact him for guidance. He said the Cervical dystonia has not improved since his June botox. He said Dr. Rivas asked him to follow up and let him know if the botox made a difference, and that if it didn't, Dr. Rivas may recommend he see another specialist. He also said they discussed him discontinuing or weaning off the Artane. Could someone reach out to Linsey about his questions? Thank you, Nava Choi documented in this encounterMemorial [facility]04-[facility]-2024 Telephone encounter Note * Telephone Encounter - Evelia Luciano RN - 08/17/2023 4:02 PM EDT Last office visit 07/01/23; Dr. Rivas had instructions for patient to let him know how he is doing. [facility]04-29-2024 Telephone encounter Note* Telephone Encounter - Nava Choi - 08/17/2023 2:24 PM EDT Linsey called and asked if someone from Dr. Rivas's clinical team could contact him for guidance. He said the Cervical dystonia has not improved since his June botox. He said Dr. Rivas asked him to follow up and let him know if the botox made a difference, and that if it didn't, Dr. Rivas may recommend he see another specialist. He also said they discussed him discontinuing or weaning off the Artane. Could someone reach out to Linsey about his questions? Thank you, Nava Choi [facility]03-13-2024 Instructions* Patient Instructions* Jessica Rivas MD - 07/01/2023 4:34 PM EDT Let me know in a few weeks how things are going. documented in this encounterMemorial Health [facility]03-13-2024 NoteHNO ID: [id number] Author: JSESICA RIVAS MD Service: ? Author Type: Physician Type: Progress Notes Filed: 07/01/2023 17:29 Note Text: Movement Disorders Neurotoxin Visit Date: July 01, 2023 Name: Linsey Barrios SUBJECTIVE: Historical/ Initial Dose Diagnosis: Cervical dystonia (G24.3) Date of diagnosis: 03/2021 Other treatments hthat ave been tried and failed: Physical therapy, Medications baclofen, trihexyphenidyl, gabapentin, clonazepam Date of first neurotoxin treatment: 12/18/22 Type of neurotoxin given: Botox: J0585 Frequency of current neurotoxin treatment: 90days Estimated frequency and duration of treatment: continue with current injection interval; will reassess after 1 year Last Injection Notes Date of last Injection: 04/01/23 Type of neurotoxin: Botox: J0585 Total amount injected: 270 units Dilution: NS 1:1 Administered with EMG guidance: Yes Degree of effectiveness of last injection: 0 ( notes seemed better but patient denies any functional benefit) Latency period of last injection: n/a Wearing off period of last injection: n/a Side effects related to last injection: none Current pain symptoms: Yes (location) - up to 3/10 pain Current functional limitations: 3-4(severe) Allergies: ALLERGIES Allergen Reactions Hydrocodone Other: See Comments Flushed feeling, dry heaves Current Medications: Current Outpatient Medications Medication Sig aspirin 325 mg tablet Take 325 mg by mouth. As needed only ibuprofen (MOTRIN) 200 mg tablet Take 200 mg by mouth every 6 hours as needed. triHEXYphenidyl (ARTANE) 5 mg tablet Take 1 tablet by mouth three times daily. levothyroxine (SYNTHROID) 50 mcg tablet Take 1 tablet by mouth every afternoon. onabotulinum toxin type A (BOTOX) 100 unit solr Inject 200 units IM in office by neurologist for cervical dystonia. Flurbiprofen 100 mg tablet Take 100 mg by mouth three times daily as needed. clonazePAM (KLONOPIN) 0.5 mg tablet Take 1 tablet by mouth every 12 hours at 6 am and 6 pm. No current facility-administered medications for this visit. OBJECTIVE: BP 122/73 (BP Site: Right Arm, BP Position: Sitting, BP Cuff Size: Regular Adult) Pulse (!) 55 Ht 177.8 cm (5' 10) Wt 81.5 kg (179 lb 12.6 oz) BMI 25.80 kg/m? Special features on today's visit: Not as prominent in prior visits. Occasional right head turn. ASSESSMENT AND PLAN: Mr. Barrios is a left-handed 63 year old male with Cervical dystonia (G24.3). After obtaining informed consent, neurotoxin injections were carried out as outlined below. TIME OUT/ PROCEDURE NOTE: Informed consent Linsey Bariros Medical Record: [id number] Procedure: neurotoxin intramuscular injection The risks, benefits and anticipated outcomes of the procedure, the risks and benefits of the alternatives to the procedure and the roles and tasks of the personnel to be involved were discussed with the patient and the patient consents to the procedure and agrees to proceed. I verify that I personally obtained Linsey Barrios's consent. Jessica Rivas MD UNIVERSAL PROTOCOL / SAFETY CHECKLIST Procedure to be Performed: Botox injection for cervical dystonia Sign In: A Moment of CARE was completed. Personnel directly involved with the procedure wore the appropriate PPE (Personal Protective Equipment). Patient/Surrogate Stated/Verified: PATIENT VERIFIED(optional for EMERGENT procedures): Patient name, Date of , Relevant allergies, and The intended procedure Time Out Communication: Intended patient and procedure match the source documents. Consent documented and matches the intended procedure. Sign Out: SIGN OUT (optional for EMERGENT procedures): No specimen collected. Jessica Rivas MD Current Injection Note Type of neurotoxin: Botox: J0585 Total amount drawn: 300 units Total amount injected: 300 units Total amount wasted: 0 units Dilution: NS 1:1 Administered with EMG guidance: Yes Injection Site: Cervical dystonia: CPT 80463 Left Right Sternocleidomastoid 55 units Splenius capitus 80 units (3 sites) Scalene 20 units 25 units Levator Scapulae 50 units (2 sites one lower one upper) Trapezius 30 units Semispinalis Longissimus 40 units Lot#: [id number] Exp Date 07/2025 Future plan of care: Follow up: 3 months Neurotoxin change: No Dose change: Depends on response Reason(s) for changing neurotoxin type of dose: n/a Sent staff message to nursing related to any changes: No [facility] History of Present illness Narrative* Jessica Rivas MD - 07/01/2023 3:40 PM EDT Images from the original note were not included. Movement Disorders Neurotoxin Visit Date: July 01, 2023 Name: Linsey Barrios SUBJECTIVE: Historical/ Initial Dose Diagnosis: Cervical dystonia (G24.3) Date of diagnosis: 03/2021 Other treatments hthat ave been tried and failed: Physical therapy, Medications baclofen, trihexyphenidyl, gabapentin, clonazepam Date of first neurotoxin treatment: 12/18/22 Type of neurotoxin given: Botox: J0585 Frequency of current neurotoxin treatment: 90days Estimated frequency and duration of treatment: continue with current injection interval; will reassess after 1 year Last Injection Notes Date of last Injection: 04/01/23 Type of neurotoxin: Botox: J0585 Total amount injected: 270 units Dilution: NS 1:1 Administered with EMG guidance: Yes Degree of effectiveness of last injection: 0 ( notes seemed better but patient denies any functional benefit) Latency period of last injection: n/a Wearing off period of last injection: n/a Side effects related to last injection: none Current pain symptoms: Yes (location) - up to 3/10 pain Current functional limitations: 3-4(severe) Allergies: ALLERGIES Allergen Reactions Hydrocodone Other: See Comments Flushed feeling, dry heaves Current Medications: Current Outpatient Medications Medication Sig aspirin 325 mg tablet Take 325 mg by mouth. As needed only ibuprofen (MOTRIN) 200 mg tablet Take 200 mg by mouth every 6 hours as needed. triHEXYphenidyl (ARTANE) 5 mg tablet Take 1 tablet by mouth three times daily. levothyroxine (SYNTHROID) 50 mcg tablet Take 1 tablet by mouth every afternoon. onabotulinum toxin type A (BOTOX) 100 unit solr Inject 200 units IM in office by neurologist for cervical dystonia. Flurbiprofen 100 mg tablet Take 100 mg by mouth three times daily as needed. clonazePAM (KLONOPIN) 0.5 mg tablet Take 1 tablet by mouth every 12 hours at 6 am and 6 pm. No current facility-administered medications for this visit. OBJECTIVE: BP 122/73 (BP Site: Right Arm, BP Position: Sitting, BP Cuff Size: Regular Adult) Pulse (!) 55 Ht 177.8 cm (5' 10) Wt 81.5 kg (179 lb 12.6 oz) BMI 25.80 kg/m Special features on today's visit: Not as prominent in prior visits. Occasional right head turn. ASSESSMENT AND PLAN: Mr. Barrios is a left-handed 63 year old male with Cervical dystonia (G24.3). After obtaining informed consent, neurotoxin injections were carried out as outlined below. TIME OUT/ PROCEDURE NOTE: Informed consent Linsey Barrios Medical Record: [id number] Procedure: neurotoxin intramuscular injection The risks, benefits and anticipated outcomes of the procedure, the risks and benefits of the alternatives to the procedure and the roles and tasks of the personnel to be involved were discussed with the patient and the patient consents to the procedure and agrees to proceed. I verify that I personally obtained Linsey Barrios's consent. Jessica Rivas MD UNIVERSAL PROTOCOL / SAFETY CHECKLIST Procedure to be Performed: Botox injection for cervical dystonia Sign In: A Moment of CARE was completed. Personnel directly involved with the procedure wore the appropriate PPE (Personal Protective Equipment). Patient/Surrogate Stated/Verified: PATIENT VERIFIED(optional for EMERGENT procedures): Patient name, Date of , Relevant allergies, and The intended procedure Time Out Communication: Intended patient and procedure match the source documents. Consent documented and matches the intended procedure. Sign Out: SIGN OUT (optional for EMERGENT procedures): No specimen collected. Jessica Rivas MD Current Injection Note Type of neurotoxin: Botox: J0585 Total amount drawn: 300 units Total amount injected: 300 units Total amount wasted: 0 units Dilution: NS 1:1 Administered with EMG guidance: Yes Injection Site: Cervical dystonia: CPT 56910 Left Right Sternocleidomastoid 55 units Splenius capitus 80 units (3 sites) Scalene 20 units 25 units Levator Scapulae 50 units (2 sites one lower one upper) Trapezius 30 units Semispinalis Longissimus 40 units Lot#: [id number] Exp Date 07/2025 Future plan of care: Follow up: 3 months Neurotoxin change: No Dose change: Depends on response Reason(s) for changing neurotoxin type of dose: n/a Sent staff message to nursing related to any changes: No Jessica Rivas MD documented in [facility] Procedure [facility]12-13-2023 NoteHNO ID: [id number] Author: Jessica Rivas MD Service: ? Author Type: Physician Type: Progress Notes Filed: 04/01/2023 2:49 PM Note Text: [place] [facility] Neurotoxin Visit Date: 04/01/23 Name: Linsey Barrios SUBJECTIVE: Historical/ Initial Dose Diagnosis: Cervical dystonia (G24.3) Date of diagnosis: 03/2021 Other treatments hthat ave been tried and failed: Physical therapy, Medications baclofen, trihexyphenidyl, gabapentin, clonazepam Date of first neurotoxin treatment: 12/18/22 Type of neurotoxin given: Botox: J0585 Frequency of current neurotoxin treatment: 90days Estimated frequency and duration of treatment: continue with current injection interval; will reassess after 1 year Last Injection Notes Date of last Injection: 12/18/22 Type of neurotoxin: Botox: J0585 Total amount injected: 170 units Dilution: NS 1:1 Administered with EMG guidance: Yes Degree of effectiveness of last injection: 0 Latency period of last injection: n/a Wearing off period of last injection: n/a Side effects related to last injection: none Current pain symptoms: Yes (location) - up to 3/10 pain Current functional limitations: 3(severe) Allergies: ALLERGIES Allergen Reactions Hydrocodone Other: See Comments Flushed feeling, dry heaves Current Medications: Current Outpatient Medications Medication Sig triHEXYphenidyl (ARTANE) 5 mg tablet Take 1 tablet by mouth three times daily. Flurbiprofen 100 mg tablet Take 100 mg by mouth three times daily as needed. levothyroxine (SYNTHROID) 50 mcg tablet Take 1 tablet by mouth every afternoon. onabotulinum toxin type A (BOTOX) 100 unit solr Inject 200 units IM in office by neurologist for cervical dystonia. clonazePAM (KLONOPIN) 0.5 mg tablet Take 1 tablet by mouth every 12 hours at 6 am and 6 pm. No current facility-administered medications for this visit. OBJECTIVE: BP 115/75 (BP Site: Right Arm, BP Position: Sitting, BP Cuff Size: Regular Adult) Pulse 86 Ht 177.8 cm (5' 10) Wt 81.6 kg (180 lb) BMI 25.83 kg/m? Special features on today's visit: Mild right head turn ASSESSMENT AND PLAN: Mr. Barrios is a left-handed 63 year old male with Cervical dystonia (G24.3). After obtaining informed consent, neurotoxin injections were carried out as outlined below. TIME OUT/ PROCEDURE NOTE: Informed consent Linsey Barrios Medical Record: [id number] Procedure: neurotoxin intramuscular injection The risks, benefits and anticipated outcomes of the procedure, the risks and benefits of the alternatives to the procedure and the roles and tasks of the personnel to be involved were discussed with the patient and the patient consents to the procedure and agrees to proceed. I verify that I personally obtained Linsey Barrios's consent. Jessica Rivas MD December 18, 2022 11:49 AM UNIVERSAL PROTOCOL / SAFETY CHECKLIST Procedure to be Performed: Botox injection for cervical dystonia Sign In: A Moment of CARE was completed. Personnel directly involved with the procedure wore the appropriate PPE (Personal Protective Equipment). Patient/Surrogate Stated/Verified: PATIENT VERIFIED(optional for EMERGENT procedures): Patient name, Date of , Relevant allergies, and The intended procedure Time Out Communication: Intended patient and procedure match the source documents. Consent documented and matches the intended procedure. Sign Out: SIGN OUT (optional for EMERGENT procedures): No specimen collected. Jessica Rivas MD Current Injection Note Type of neurotoxin: Botox: J0585 Total amount drawn: 300 units Total amount injected: 270 units Total amount wasted: 30 units Dilution: NS 1:1 Administered with EMG guidance: Yes Injection Site: Cervical dystonia: CPT 65932 Left Right Sternocleidomastoid 60 units 40 units Splenius capitus 50 units +++ Scalene 20 units Levator Scapulae 50 units Trapezius 20 units 30 units Semispinalis (Other) Lot#: [id number] Exp Date 07/2025 Future plan of care: Follow up: 3 months Neurotoxin change: No Dose change: No - depends on response Reason(s) for changing neurotoxin type of dose: n/a Sent staff message to nursing related to any changes: No [facility] History of Present illness Narrative* Jessica Rivas MD - 04/01/2023 1:35 PM EST Images from the original note were not included. [facility] Movement Disorders Neurotoxin Visit Date: 04/01/23 Name: Linsey Barrios SUBJECTIVE: Historical/ Initial Dose Diagnosis: Cervical dystonia (G24.3) Date of diagnosis: 03/2021 Other treatments hthat ave been tried and failed: Physical therapy, Medications baclofen, trihexyphenidyl, gabapentin, clonazepam Date of first neurotoxin treatment: 12/18/22 Type of neurotoxin given: Botox: J0585 Frequency of current neurotoxin treatment: 90days Estimated frequency and duration of treatment: continue with current injection interval; will reassess after 1 year Last Injection Notes Date of last Injection: 12/18/22 Type of neurotoxin: Botox: J0585 Total amount injected: 170 units Dilution: NS 1:1 Administered with EMG guidance: Yes Degree of effectiveness of last injection: 0 Latency period of last injection: n/a Wearing off period of last injection: n/a Side effects related to last injection: none Current pain symptoms: Yes (location) - up to 3/10 pain Current functional limitations: 3(severe) Allergies: ALLERGIES Allergen Reactions Hydrocodone Other: See Comments Flushed feeling, dry heaves Current Medications: Current Outpatient Medications Medication Sig triHEXYphenidyl (ARTANE) 5 mg tablet Take 1 tablet by mouth three times daily. Flurbiprofen 100 mg tablet Take 100 mg by mouth three times daily as needed. levothyroxine (SYNTHROID) 50 mcg tablet Take 1 tablet by mouth every afternoon. onabotulinum toxin type A (BOTOX) 100 unit solr Inject 200 units IM in office by neurologist for cervical dystonia. clonazePAM (KLONOPIN) 0.5 mg tablet Take 1 tablet by mouth every 12 hours at 6 am and 6 pm. No current facility-administered medications for this visit. OBJECTIVE: BP 115/75 (BP Site: Right Arm, BP Position: Sitting, BP Cuff Size: Regular Adult) Pulse 86 Ht 177.8 cm (5' 10) Wt 81.6 kg (180 lb) BMI 25.83 kg/m Special features on today's visit: Mild right head turn ASSESSMENT AND PLAN: Mr. Barrios is a left-handed 63 year old male with Cervical dystonia (G24.3). After obtaining informed consent, neurotoxin injections were carried out as outlined below. TIME OUT/ PROCEDURE NOTE: Informed consent Linsey Barrios Medical Record: [id number] Procedure: neurotoxin intramuscular injection The risks, benefits and anticipated outcomes of the procedure, the risks and benefits of the alternatives to the procedure and the roles and tasks of the personnel to be involved were discussed with the patient and the patient consents to the procedure and agrees to proceed. I verify that I personally obtained Linsey Barrios's consent. Jessica Rivas MD December 18, 2022 11:49 AM UNIVERSAL PROTOCOL / SAFETY CHECKLIST Procedure to be Performed: Botox injection for cervical dystonia Sign In: A Moment of CARE was completed. Personnel directly involved with the procedure wore the appropriate PPE (Personal Protective Equipment). Patient/Surrogate Stated/Verified: PATIENT VERIFIED(optional for EMERGENT procedures): Patient name, Date of , Relevant allergies, and The intended procedure Time Out Communication: Intended patient and procedure match the source documents. Consent documented and matches the intended procedure. Sign Out: SIGN OUT (optional for EMERGENT procedures): No specimen collected. Jessica Rivas MD Current Injection Note Type of neurotoxin: Botox: J0585 Total amount drawn: 300 units Total amount injected: 270 units Total amount wasted: 30 units Dilution: NS 1:1 Administered with EMG guidance: Yes Injection Site: Cervical dystonia: CPT 58146 Left Right Sternocleidomastoid 60 units 40 units Splenius capitus 50 units +++ Scalene 20 units Levator Scapulae 50 units Trapezius 20 units 30 units Semispinalis (Other) Lot#: [id number] Exp Date 07/2025 Future plan of care: Follow up: 3 months Neurotoxin change: No Dose change: No - depends on response Reason(s) for changing neurotoxin type of dose: n/a Sent staff message to nursing related to any changes: Loni Rivas MD documented in this encounterMem[facility]10-[facility]23 Miscellaneous Notes* Telephone Encounter - Evelia Luciano RN - 01/19/2023 3:28 PM EDT Called patient, no answer at [phone]. Unable to leave voicemail message, would not record. * Telephone Encounter - Jessica Rivas MD - 01/19/2023 2:58 PM EDT Will increase dose for next visit. I'll send this to Simran to submit for up to 300 units for nextvisit. * Telephone Encounter - Julieta Lewis - 01/19/2023 1:48 PM EDT Patient calling in with concern that he has not felt any reduction from getting the botox on . Please call patient and advise. documented in this encounterMemorial [facility]08-31-[facility] History of Present illness Narrative* Jessica Rivas MD - 12/18/2022 11:48 AM EDT Images from the original note were not included. [place] [facility] Neurotoxin Visit Date: December 18, 2022 Name: Linsey Barrios SUBJECTIVE: Historical/ Initial Dose Diagnosis: Cervical dystonia (G24.3) Date of diagnosis: 03/2021 Other treatments hthat ave been tried and failed: Physical therapy, Medications baclofen, trihexyphenidyl, gabapentin, clonazepam Date of first neurotoxin treatment: 12/18/22 Type of neurotoxin given: Botox: J0585 Frequency of current neurotoxin treatment: 90days Estimated frequency and duration of treatment: continue with current injection interval; will reassess after 1 year Last Injection Notes Date of last Injection: n/a Type of neurotoxin: Botox: J0585 Total amount injected: n/a units Dilution: NS 1:1 Administered with EMG guidance: Yes Degree of effectiveness of last injection:n/a% Latency period of last injection: n/a week(s) Wearing off period of last injection: n/a week(s) Side effects related to last injection: n/a Current pain symptoms: Yes (location) - up to 3/10 pain Current functional limitations: 3(severe) Allergies: ALLERGIES Allergen Reactions Hydrocodone Other: See Comments Flushed feeling, dry heaves Current Medications: Current Outpatient Medications Medication Sig triHEXYphenidyl (ARTANE) 5 mg tablet Take 1 tablet by mouth three times daily. Flurbiprofen 100 mg tablet Take 100 mg by mouth three times daily as needed. levothyroxine (SYNTHROID) 50 mcg tablet Take 1 tablet by mouth every afternoon. clonazePAM (KLONOPIN) 0.5 mg tablet Take 1 tablet by mouth every 12 hours 6am/6pm. onabotulinum toxin type A (BOTOX) 100 unit solr Inject 200 units IM in office by neurologist for cervical dystonia. No current facility-administered medications for this visit. OBJECTIVE: BP 103/61 (BP Site: Right Arm, BP Position: Sitting, BP Cuff Size: Large Adult) Pulse 60 Ht 177.8 cm (5' 10) Wt 80.5 kg (177 lb 8 oz) SpO2 98% BMI 25.47 kg/m Special features on today's visit: Mild right head turn ASSESSMENT AND PLAN: Mr. Barrios is a left-handed 62 year old male with Cervical dystonia (G24.3). After obtaining informed consent, neurotoxin injections were carried out as outlined below. TIME OUT/ PROCEDURE NOTE: Informed consent Linsey Barrios Medical Record: [id number] Procedure: neurotoxin intramuscular injection The risks, benefits and anticipated outcomes of the procedure, the risks and benefits of the alternatives to the procedure and the roles and tasks of the personnel to be involved were discussed with the patient and the patient consents to the procedure and agrees to proceed. I verify that I personally obtained Linsey Barrios's consent. Jessica Rivas MD December 18, 2022 11:49 AM UNIVERSAL PROTOCOL / SAFETY CHECKLIST Procedure to be Performed: Botox injection for cervical dystonia Sign In: A Moment of CARE was completed. Personnel directly involved with the procedure wore the appropriate PPE (Personal Protective Equipment). Patient/Surrogate Stated/Verified: PATIENT VERIFIED(optional for EMERGENT procedures): Patient name, Date of , Relevant allergies, and The intended procedure Time Out Communication: Intended patient and procedure match the source documents. Consent documented and matches the intended procedure. Sign Out: SIGN OUT (optional for EMERGENT procedures): No specimen collected. Jessica Rivas MD Current Injection Note Type of neurotoxin: Botox: J0585 Total amount drawn: 200 units Total amount injected: 170 units Total amount wasted: 30 units Dilution: NS 1:1 Administered with EMG guidance: Yes Injection Site: Cervical dystonia: CPT 69285 Left Right Sternocleidomastoid 40 units 20 units Splenius capitus 30 units +++ Scalene Levator Scapulae 20 units 20 units Trapezius 20 units 20 units Semispinalis (Other) Lot#: [id number] Exp Date 06/2024 Future plan of care: Follow up: 3 months Neurotoxin change: No Dose change: No - depends on response Reason(s) for changing neurotoxin type of dose: n/a Sent staff message to nursing related to any changes: No Jessica Rivas MD December 18, 2022 documented in this encounterMemorial [facility]08-01-2023 Miscellaneous Notes* Telephone Encounter - Simran Corona - 11/18/2022 3:33 PM EDT Prior Auth Determination: Approved Received via: Fax From: [employer] / [employer] [place] Medication/ Treatment: Botox with EMG 200 units every 90 days 5 visits allowed 1,000 billable allowed units Auth#/ Case#: [id number] Date Period: 11/14/22 - 11/13/23 * Telephone Encounter - Simran Corona - 11/14/2022 11:46 AM EDT Prior Authorization PENDING Medication/ Treatment: BOTOX with EMG Initial / Continuation: initial Scheduled: yes Submitted To: [facility] [place] Via: Fax documented in this encounterMemorial [facility]07-19-2023 Instructions* Patient Instructions* Jessica Rivas MD - 11/05/2022 3:40 PM EDT I'll submit for Botox authorization. I don't think the current medications are helping enough to want to continue them. To stop clonazepam, decrease to 1 pill at night for a week, then stop. I'll give you tapering instructions to come off trihexyphenidyl at the next visit. documented in this encounterMemorial [facility]07-19-2023 History of Present illness Narrative* Jessica Rivas MD - 11/05/2022 2:59 PM EDT NEW PATIENT EVALUATION Subjective HPI Linsey Barrios is a 62 year old left-handed male. Consultation requested by Dr. Ball for an opinion regarding cervical dystonia. My final recommendations will be communicated back to the requesting physician by way of fax. Dr. Guerra is the PCP. his daughter noticed his head twitching to the right. Has gotten more intense and more frequent ever since then. The same things happens every day. Sleeps fine, gets up at night and is OK. Wakes up and for around5-60 minutes feels fine, then the muscle in the right posterior cervical spine gets inflamed which then continues the rest of the day. Severity fluctuates, some days aren't terrible other days are more severe. On really bad days will literally put counter pressure on his head to straighten his head, does not seem to be a sensory trick, putting a finger on his judaism pushing is helpful. Head is turned to the right, at times unable to turn to the left. When turned to the left sometimes his speechseems slurred. Did a few sessions of physical therapy. 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 Saw neurology Dr. Ball, who has been trying oral medications: - Baclofen 20 mg TID no benefit - Artane 5 mg TID minimal benefit - Gabapentin 600 mg TID no benefit - Clonazepam 0.5 mg BID no benefit Medications: Current Outpatient Medications Medication Sig Dispense Refill triHEXYphenidyl (ARTANE) 5 mg tablet Take 1 tablet by mouth three times daily. Flurbiprofen 100 mg tablet Take 100 mg by mouth three times daily as needed. levothyroxine (SYNTHROID) 50 mcg tablet Take 1 tablet by mouth every afternoon. clonazePAM (KLONOPIN) 0.5 mg tablet Take 1 tablet by mouth every 12 hours 6am/6pm. No current facility-administered medications for this visit. ROS ROS: His ROS was positive for that mentioned in the HPI. Otherwise a 10-point ROS was completed andwas negative. 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 Head: Normocephalic Neck: Supple Heart: RRR Peripheral Pulses: Normal Neurologic Examination Mental Status: He is alert. He is fully oriented. Attention is intact. Recent and remote memory is intact. Language shows normal comprehension and fluency. Praxis is normal. Affect is appropriate. Cranial Nerves: Pupils are equal and reactive to light. Extraocular movements show full and smooth pursuits. No nystagmus. Visual delong are full to confrontation. Facial sensation is intact. Facial activation is symmetric. Hearing is intact to conversation. There is no hypomimia. There is no hypoph onia. There is no dysarthria. Tongue is midline. Palate elevates symmetrically. Shoulder shrug is normal. Motor: Muscle bulk is normal. Rapid alternating movements are normal. Muscle power is full. Primarily right head turn. Variable tilt often neutral actually tends more towards right than left.Variable position. Hypertrophy of posterolateral neck musculature R>L. Left SCM mild hypertrophycompared to right. Subtle pursing of lips more on right. Mildly restless appearing. Sensory: Intact to fine touch Reflex: 2+ and symmetric Coordination: Finger to nose is smooth without ataxia. Gait/station: Normal DATA REVIEWED Actual films/image/tracing reviewed and summarized as follows: n/a Old records reviewed and summarized as follows: Reviewed external neurology records including medication trials, see HPI Assessment/Plan Assessment & Plan: Linsey Barrios is a 62 year old left-handed male with a history of cervical dystonia who presents for evaluation. His examination demonstrates abnormal head posture and movements. We discussed his presentation. Certainly could be consistent with cervical dystonia. A little bit of variability in head position and movements is a little unusual. Has tried several oral medications(Baclofen 20 mg TID no benefit, Artane 5 mg TID minimal benefit, gabapentin 600 mg TID no benefit, clonazepam 0.5 mg BID no benefit). It is causing severe disability and pain. Recommend trying botulinum toxin injections with EMG guidance. First injection 200 units, tentatively plan pattern as belowthough will see how he looks when he comes in for injection to finalize exact doses into muscles. 50 L SCM 30 R SCM 20 R scalene 25 R splenius 30 R trap 20 L trap Will send to office staff for pre-authorization. He should return to see me in ~1 month. Jessica Rivas MD [facility] documented in this encounterMemorial Health [facility]07-14-2023 Miscellaneous Notes* Telephone Encounter - Simran Corona - 10/31/2022 5:52 PM EDT Called [phone] and left detailed message with the referring office of Dr. Ball in [place], asking for office/ treatment notes, imaging reports, etc.. Asked to be faxed to us and to call back if there are any questions. (Spoke with patient and confirmed this is where to request records) documented in this encounterLouis [facility]* Diagnosis Onset Date Resolution Status Elevated TSH acute Cervical dystonia chronic Cervical dystonia chronic [facility] Work Phone: Evaluation note* Diagnosis Onset Date Resolution Status Cervical dystonia acute Hypothyroidism chronic [facility] Work Phone: Evaluation note* Diagnosis Onset Date Resolution Status Carpal tunnel syndrome of left wrist acute Cervical dystonia acute Hypothyroidism chronic [facility] Work Phone: Evaluation note* Diagnosis Cervical dystonia- Primary Spasmodic torticollis documented in this encounter [facility] note* Diagnosis Cervical dystonia- Primary Spasmodic torticollis documented in this encounter [facility] note* Diagnosis Cervical dystonia- Primary Spasmodic torticollis documented in this encounter [facility] note* Diagnosis Onset Date Resolution Status Cervical dystonia acute Carpal tunnel syndrome of left wrist resolved [facility] Work Phone: Evaluation note* Diagnosis Cervical dystonia- Primary Spasmodic torticollis documented in this encounter [facility] note* Diagnosis Onset Date Resolution Status Cubital tunnel syndrome on left acute Left shoulder pain acute Carpal tunnel syndrome of left wrist resolved [facility] Work Phone: Evaluation note* Diagnosis Cervical dystonia- Primary Spasmodic torticollis Cervical spinal stenosis Spinal stenosis in cervical region documented in this encounter [facility] note* Diagnosis Onset Date Resolution Status Admit Date Cervical dystonia acute August 10:02am Cubital tunnel syndrome on left acut e September 13, 2024 10:02am Carpal tunnel syndrome of le ft wrist resolved September 13, 2024 1 0:02am [facility] Work Phone: [facility] Work Phone: Reason for referral (narrative)No reason for referral information availableK[facility] Work Phone: Chief Complaint and Reason for Visit Chief Complaint 4 M FU CERVICAL DYSTONIA EORDER Reason for Visit Elevated TSH Cervical dystonia Cervical dystonia Chief Complaint 4 M FU EORDER Amb Documentation Reason for Visit Cervical dystonia Hypothyroidism Chief Complaint 4 M FU EORDER SPASMODIC TORTICOLLIS RX HERE Reason for Visit Carpal tunnel syndro me of left wrist Cervical dystonia Hypothyroidism Chief Complaint 4 M FU Carpal tunnel syndrome, left upper limb Carpal tunnel syndrome, left upper limb Reason for Visit Cervical dystonia Carpal tunnel syndrome of left wrist Chief Complaint Carpal tunnel syndro me, left upper limb Carpal tunnel syndrome, left upper limb 4 M FU left shoulder pain Reason for Visit Cubital tunnel syndr ome on left Left shoulder pain Carpal tunnel syndrome of left wrist Chief Complaint Admit Date 4 M FU September 13, 2024 10:02 am Reason for Visit Admit Date Cervical dystonia September 13, 2024 10:02 am Cubital tunnel syndrome on left August 10:02am Carpal tunnel syndrome of left wrist September 13, 2024 10:02am Chief Complaint Admit Date 4 M FU September 13, 2024 10:02 am TRIGGER POINT INJECTION October 05, 2024 10:58am Reason for Visit Admit Date Cervical dystonia September 13, 2024 10:02 am Cubital tunnel syndrome on left August 10:02am Myalgia September 13, 2024 10:02 am Neck pain September 13, 2024 10:02 am Carpal tunnel syndrome of left wrist September 13, 2024 10:02am Chief Complaint Admit Date TRIGGER POINT INJECTION October 05, 2024 10:58am 4 MO FU January 12, 2025 10:20am Reason for Visit Admit Date Myalgia October 05, 2024 10:5 8am Neck pain October 05, 2024 10:5 8am Family History No Family History Records Found Relationship Condition Age at Onset Recorded Date/T purnima mother Osteoporosis Unknown Status post three ve ssel coronary artery bypass Unknown father Status post three ve ssel coronary artery bypass Unknown Advance Directives No Advanced Directives Records Found Advance Directive Response Recorded Date/ Time Living Will No July 17, 2020 11:33am Power of Chemistry Laboratory Technician No July 17 11:33am Advance Directive Response Recorded Date/ Time Living Will No July 17, 2020 10:33am Power of Chemistry Laboratory Technician No July 17 10:33am Medications Administered Section Inactive Administered Medications - up to 3 most recent administrations Medication Order MAR Action Action Date Dose Rate Site onabotulinum toxin type A 200 Units injection (BOTOX) 200 Units, INTRAMUSCULAR, ONCE (UP TO 30 DAYS AMB), 1 dose, On Swetha 12/18/22 at 1330, This record documents the total dose provided to patient. See progress note for specific locations and amounts administered. REFRIGERATE - Pharmaceutical Waste: Lab Pack - Given 12/18/2022 1:16 PM EDT 200 Units Other Inactive Administered Medications - up to 3 most recent administrations Medication Order MAR Action Action Date Dose Rate Site onabotulinum toxin type A 300 Units injection (BOTOX) 300 Units, INTRAMUSCULAR, ONCE (UP TO 30 DAYS AMB), 1 dose, On 04/01/23 at 1500, This record documents the total dose provided to patient. See progress note for specific locations and amounts administered. REFRIGERATE - Pharmaceutical Waste: Lab Pack - Given 04/01/2023 2:48 PM EST 300 Units Neck Reason for Referral Specialty Diagnoses / Procedures Referred By Matty sánchez Referred To Contact Neurology Diagnoses Cervical dystonia Procedures CONSULT TO NEUROLOGY OFFICE/OUTPATIENT [facility] 60 MINUTES Jessica Rivas MD [address] [place] [address] [place] [address] Referral ID Status Reason Start Date Expiration Date Visits Requested Visits Authorized [id number] Authorized PCP Requested Referral 08/18/2023 08/17/2024 1 1 Summary Purpose Additional Source Comments Goals (unrecognized section and content) Goals may be documented in a n alternate sectionGoals may be documented in an alternate sectionGoals may be documented in an alternate sectionGoals may be documented in an alternate sectionGoals may be documented in an alternate sectionGoals may be documented in an alternate sectionGoals may be documented in an alternate sectionGoals may be documented in an alternate section Care Teams (unrecognized sec tion and content) Team Status: Active Member Role Status Dates No Primary Care Physician Family Provider Active Dr. Chinedu Guerra MD Primary Care Provider Active Team Status: Inactive Member Role Status Dates Dr. Chinedu Guerra MD Primary Care Provider, Referri Provider Active Dr. Earl Ball MD Attending Provider Active Team Status: Active Member Role Status Dates Dr. Chinedu Guerra MD Primary Care Provider Active Earl MOELLER MD Attending Provider, Referring Provider Active Team Status: Inactive Member Role Status Dates Dr. Chinedu Guerra MD Primary Care Provider Active Dr. 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 Relationship Specialty Start Date End Date Chinedu Guerra MD [address] [id number] PCP - General Internal Medicine 11/05/22 Earl Ball MD [address] [place] [address] [phone] Referring Neurology 06/26/22 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 Relationship Specialty Start Date End Date Chinedu Guerra MD [address] [phone] PCP - General Internal Medicine 11/05/22 Earl Ball MD [address] [place] [address] [phone] Referring Neurology 06/26/22 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 Chinedu Guerra MD Primary Care Provider Active Dr. Earl Ball MD Referring Provider, Other Pro vider Active Dr. 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 Relationship Specialty Start Date End Date Chinedu Guerra MD [address] [place] [address] PCP - General Internal Medicine 11/05/22 Earl Ball MD Referring Neurology 06/26/22 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 Relationship Specialty Start Date End Date Chinedu Guerra MD [address] [facility] [address] [place], [place] [address] PCP - General Internal Medicine 11/05/22 Earl Ball MD Referring Neurology 06/26/22 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 Relationship Specialty Start Date End Date Chinedu Guerra MD 168 [facility] [address] [place] [address] PCP - General Internal Medicine 11/05/22 Earl Ball MD Referring Neurology 06/26/22 Team Status: Inactive Member Role Status Dates Dr. Chinedu Guerra MD Primary Care Provider Active Start: September 13, 2024 End: September 13, 2024 Dr. Chinedu Guerra MD Referring Provider Active Start: September 13, 2024 End: September 13, 2024 Dr. Earl Ball MD Attending Provider Active Start: September 13, 2024 End: September 13, 2024 Team Status: Inactive Member Role Status Dates Dr. Chinedu Guerra MD Primary Care Provider Active Start: October 05, 2024 End: October 05, 2024 Dr. Chinedu Guerra MD Referring Provider Active Start: October 05, 2024 End: October 05, 2024 Dr. Earl Ball MD Attending Provider Active Start: October 05, 2024 End: October 05, 2024 Team Status: Active Member Role/Relationship Status Dates No Primary Care Physician Primary care physician Activ e Dr. Chinedu Guerra MD Primary care physician Active Team Status: Inactive Member Role/Relationship Status Dates Dr. Chinedu Guerra MD Primary care physician Active Start: October 05, 2024 End: October 05, 2024 Dr. Earl Ball MD Attending physician Active Start: October 05, 2024 End: October 05, 2024 Dr. Earl Ball MD Referring Provider Active Start: October 05, 2024 End: October 05, 2024 Team Status: Inactive Member Role/Relationship Status Dates Dr. Chinedu Guerra MD Primary care physician Active Start: January 12, 2025 End: January 12, 2025 Dr. Chinedu Guerra MD Referring Provider Active Start: January 12, 2025 End: January 12, 2025 Dr. Earl Ball MD Attending physician Active Start: January 12, 2025 End: January 12, 2025 Source Comments (unrecognize d section and content) In the event this informatio n is protected by the Federal Confidentiality of Alcohol and Drug Abuse Patient Records regulations: The Federal rules restrict any use of the information to criminally investigate or prosecute any alcohol or drug abuse patient.[facility] the event this information is protected by the Federal Confidentiality of Alcohol and Drug Abuse Patient Records regulations: The Federal rules restrict any use of the information to criminally investigate or prosecute any alcohol or drug abuse patient.[facility] the event this information is protected by the Federal Confidentiality of Alcohol and Drug Abuse Patient Records regulations: The Federal rules restrict any use of the information to criminally investigate or prosecute any alcohol or drug abuse patient.[facility] the event this information is protected by the Federal Confidentiality of Alcohol and Drug Abuse Patient Records regulations: The Federal rules restrict any use of the information to criminally investigate or prosecute any alcohol or drug abuse patient.[facility] Hospital[facility] the event this information is protected by the Federal Confidentiality of Alcohol and Drug Abuse Patient Records regulations: The Federal rules restrict any use of the information to criminally investigate or prosecute any alcohol or drug abuse patient.[facility] the event this information is protected by the Federal Confidentiality of Alcohol and Drug Abuse Patient Records regulations: The Federal rules restrict any use of the information to criminally investigate or prosecute any alcohol or drug abuse patient.[facility] Hospital[facility] the event this information is protected by the Federal Confidentiality of Alcohol and Drug Abuse Patient Records regulations: The Federal rules restrict any use of the information to criminally investigate or prosecute any alcohol or drug abuse patient.[facility] Hospital[facility] the event this information is protected by the Federal Confidentiality of Alcohol and Drug Abuse Patient Records regulations: The Federal rules restrict any use of the information to criminally investigate or prosecute any alcohol or drug abuse patient.[facility] Hospital[facility] the event this information is protected by the Federal Confidentiality of Alcohol and Drug Abuse Patient Records regulations: The Federal rules restrict any use of the information to criminally investigate or prosecute any alcohol or drug abuse patient.[facility] Hospital[facility] the event this information is protected by the Federal Confidentiality of Alcohol and Drug Abuse Patient Records regulations: The Federal rules restrict any use of the information to criminally investigate or prosecute any alcohol or drug abuse patient.[facility] Hospital[facility] the event this information is protected by the Federal Confidentiality of Alcohol and Drug Abuse Patient Records regulations: The Federal rules restrict any use of the information to criminally investigate or prosecute any alcohol or drug abuse patient.[facility] Reason for Visit (unrecogniz ed section and content) Reason Comments Appointment Reason Comments Cervical Dystonia Reason Comments Insurance Authorization BOTOX Reason Comments Follow Up Specialty Diagnoses / Procedures Referred By Contac t Referred To Contact ADULT NEUROLOGY Diagnoses Spasmodic torticollis Procedures BOTULINUM TOXIN A PER 1 UNIT ELECTRICAL STIMULATION GUID W/CHEMODENERVATION CHEMODENERVATION MUSCLE NECK UNILAT FOR DYSTONIA Jessica Rivas MD [address] [place] [address] [place] [address] [address] [place] [address] Referral ID Status Reason Start Date Expiration Date V isits Requested Visits Authorized [id number] Authorized 11/14/2022 11/13/2023 5 5 Reason Comments Patient Question Reason Comments Botox Injection Specialty Diagnoses / Procedures Referred By Contac t Referred To Contact ADULT NEUROLOGY Diagnoses Spasmodic torticollis Procedures BOTULINUM TOXIN A PER 1 UNIT CHEMODENERVATION MUSCLE NECK UNILAT FOR DYSTONIA NEEDLE EMG GUIDANCE FOR CHEMODENERVATION Jessica Rivas MD [address] [place] [address] [place] [address] [facility] [place] [address] [place] [address] Referral ID Status Reason Start Date Expiration Date V isits Requested Visits Authorized [id number] Authorized 04/01/2023 11/13/2023 3 3 Reason Comments Patient Question Reason Comments New Patient Cervical Dystonia Reason Comments Imaging Request MRI Cervical Spine Reason Comments Patient Question/FU after 09/24/23 OV Inactive Administered Medications - up to 3 most recent administrations Administered Medications (un recognized section and content) Medication Order MAR Action Action Date Dose Rate Site onabotulinum toxin type A 300 Units injection (BOTOX) 300 Units, INTRAMUSCULAR, ONCE (UP TO 30 DAYS AMB), 1 dose, On Thu07/01/23 at 1730, This record documents the total dose provided to patient. See progress note for specific locations and amounts administered. REFRIGERATE - Pharmaceutical Waste: Lab Pack - Given 07/01/2023 5:28 PM EDT 300 Units Neck (unrecognized sect ion and content) No Status Records FoundNo Status Records Found INFORMATION SOURCE (unrecogn ized section and content) DATE CREATED AUTHOR 12/23/2023 [facility] DATE CREATED AUTHOR AUTHOR'S RENITA CLIFTON 02/28/2025 [facility] FOR RECORDS PERTAINING TO PATIENTS WHO ARE OR HAVE BEEN ENROLLED IN A CHEMICAL DEPENDENCY/SUBSTANCEABUSE PROGRAM, SOME INFORMATION MAY BE OMITTED. This clinical summary was aggregated from multiple sources. Caution should be exercised in using it in the provision of clinical care. This summary normalizes information from multiple sources, and as a consequence, information in this document may materially change the coding, format and clinical context of patient data. In addition, data may be omitted in some cases. CLINICAL DECISIONS SHOULD BE BASED ON THE PRIMARY CLINICAL RECORDS. [facility] [employer] [facility]. provides no warranty or guarantee of the accuracy or completeness of information in this document.
[2025-04-18 12:29] LABS: Hematocrit 38.9 % (40-54); Hemoglobin 13.6 g/dL (13.0-16.5); Immature Granulocytes Count 0.010 X10^3/uL (0.0-0.0); Mean Corp Hgb Conc 35.0 g/dL (32-36); Mean Corpuscular Volume 89.6 fL (80-94); Mean Platelet Vol. 9.5 fl (6.2-12.0); NRBC Flagged by Analyzer 0 % (0-5); Platelet Count 224 K/mm3 (150-450); RBC Distribution Width CV 12.5 % (11.6-14.6); RBC Distribution Width SD 41.3 fl (35.1-43.9); Red Blood Count 4.34 M/mm3 (4.6-6.2); White Blood Count 6.4 K/mm3 (4.4-11.0)
[2025-04-18 13:05] LABS: AST(SGOT) 22 U/L (<=37); Alanine Aminotransfer ALT/SGPT 12 U/L (<=46); Albumin, Serum 4.3 g/dL (3.4-4.8); Alkaline Phosphatase 98 U/L (40-129); Anion Gap 9 (7-18); BUN 13 mg/dL (4-19); BUN/Creat Ratio 13.9 RATIO (10-20); Calcium,Total 9.7 mg/dL (7.6-11.0); Carbon Dioxide 26.7 mmol/L (20.0-29.0); Chloride 101 mmol/L (96-106); Cholesterol 167 mg/dL (<=200); Free T3 2.8 pg/mL (2.18-3.98); Globulin 3.6 g/dL (2.2-4.2); Glucose 96 mg/dL (70-99); Low Density Lipoprotein Calc. 109 mg/dL; Magnesium 2.0 mg/dL (1.5-2.2); PSA,Total - Annual Screen 0.32 ng/mL (0.02-4.00); Potassium 4.4 mmol/L (3.5-5.1); Triglycerides 72 mg/dL; Very Low Density Lipoprotein 14 mg/dL (5-40); Vitamin B12 425 pg/mL (180-914); Vitamin D,25 Hydroxy 27.4 ng/mL (30-100); cholesterol:hdl ratio screen 3.80
== END | disposition home or self-care (01) ==
PROVIDERS: PCP Internal Medicine; Referring Provider Psychiatry & Neurology Neurology; Visit Provider Psychiatry & Neurology Neurology
DX: Z12.5 Encounter for screening for malignant neoplasm of prostate (principal); E03.9 Hypothyroidism, unspecified; R73.9 Hyperglycemia, unspecified; Z13.220 Encounter for screening for lipoid disorders; E55.9 Vitamin D deficiency, unspecified; E53.8 Deficiency of other specified B group vitamins; M25.511 Pain in right shoulder
CPT/HCPCS: 36415; 73030; 80053; 80061; 82306; 82607; 83036; 83735; 84153; 84439; 84443; 84481; 85025; G0103